=== PATIENT | male | born 1960 | race Caucasian/White ===

== ENCOUNTER → 2017-07-10 | Outpatient (CLI) | payer BC ==
[2017-07-10 07:08] LABS: Blood Urea Nitrogen 14 mg/dL (9-20)
--- NOTE | 2017-07-10 08:38 | CT ---
EXAMINATION TYPE: CT chest w con DATE OF EXAM: 07/10/2017 COMPARISON: NONE HISTORY: chest pain, SOB, wt loss, anemia CT DLP: 656 mGycm. Automated Exposure Control for Dose Reduction was Utilized. TECHNIQUE: CT scan of the thorax is performed following with IV Contrast, patient injected with 100 mL of Omnipaque 300. FINDINGS: LUNGS: There are small to moderate-sized right pleural effusion with associated compressive atelectas is in the right lung base. There is no significant left-sided effusion seen. Tracheobronchial tree is patent. There is some additional linear scarring and/or atelectasis in the right middle lobe near ax ial image 36 and in the lingula seen best coronal image 23. No suspicious parenchymal nodule or mass is identified bilaterally. No pneumothorax is seen bilaterally. MEDIASTINUM: There are no greater than 1 cm hilar or mediastinal lymph nodes. No pericardial effusi on is seen. Heart size is upper limits of normal. OTHER: No additional significant abnormality is seen. IMPRESSION: 1. Unilateral small to moderate-sized right pleural effusion of uncertain etiology. No suspicious mas s or adenopathy noted.
== END | disposition home or self-care (01) ==
LOC: RADCTMAIN 06:33
PROVIDERS: ATTEND Family Medicine
DX: J90 Pleural effusion, not elsewhere classified (principal)
CPT/HCPCS: 82565; 84520; 71260; 36415; Q9967

== ENCOUNTER 2017-07-31 08:56 | Day surgery (SDC) | payer BC ==
[2017-07-31 09:40] LABS: Platelet Count 552 k/uL (150-450)
[2017-07-31 09:45] VITALS: TEMP 97.8
[2017-07-31 09:49] LABS: INR 1.2 (<1.2); Prothrombin Time 11.1 sec (9.0-12.0)
--- NOTE | 2017-07-31 11:01 | XR ---
EXAMINATION TYPE: XR chest 1V portable DATE OF EXAM: 07/31/2017 COMPARISON: Chest x-ray 07/22/2017 HISTORY: Status post right thoracentesis TECHNIQUE: Single frontal view of the chest is obtained. FINDINGS: There is improved aeration at the right lung base. No evident pneumothorax. Exam is otherw ise stable. IMPRESSION: No evident complication status post thoracentesis.
[2017-07-31 11:03] VITALS: RESP 16
[2017-07-31 11:50] VITALS: BP 133/73; PULSE 70
--- NOTE | 2017-07-31 13:54 | US ---
EXAMINATION TYPE: US thoracentesis DATE OF EXAM: 07/31/2017 COMPARISON: NONE HISTORY: Pleural effusion. FINDINGS: Maximal barrier technique was utilized. The skin overlying a suitable pocket of fluid was localized and the overlying skin prepped and draped. Lidocaine was used for local anesthesia. Ultras ound was used with sterile technique. A 5 Macedonian catheter over guide needle was advanced into the pl eural fluid collection using ultrasound guidance and catheter advanced, needle removed. Approximatel y 0.56 liter(s) of sanguinous fluid was removed. Catheter was withdrawn and hemostasis achieved. Th ere is no immediate complication. The patient discharged in stable condition without complication. IMPRESSION: STATUS POST ULTRASOUND GUIDED THORACENTESIS, POST PROCEDURE CHEST X-RAY PENDING. THIS VT OCEDURE WAS PERFORMED BY THE UNDERSIGNED. Specimen obtained for laboratory analysis.
[2017-07-31 19:31] LABS: Total Protein, Body Fluid 4300 mg/dL
== END 2017-07-31 11:10 | disposition home or self-care (01) ==
LOC: RADPROMAIN 08:56
PROVIDERS: ATTEND Internal Medicine
DX: J90 Pleural effusion, not elsewhere classified (principal)
CPT/HCPCS: 32555; 36415; 71045; 82945; 83615; 84157; 85049; 85610; 87070; 87205; 88108; 88305

== ENCOUNTER → 2017-08-16 | Outpatient (CLI) | payer BC ==
--- NOTE | 2017-08-16 14:38 | CT ---
EXAMINATION TYPE: CT abdomen pelvis w con DATE OF EXAM: 08/16/2017 COMPARISON: NONE INDICATION: Weight loss, not feeling well DLP: 1011.4 mGycm, Automated exposure control for dose reduction was used. CONTRAST: 100 mL of Omnipaque 300. Study performed with Oral Contrast TECHNIQUE: Axial images were obtained from above the diaphragm to the pubic rami in the axial plane a t 5 mm thick sections. Reconstructed images are reviewed on the computer in the coronal plane. FINDINGS: Limited CT sections are obtained the lung bases. There is a moderate right pleural effusion present in the subpulmonic region. Compressive atelectasis is present. Left lung appears clear. CT ABDOMEN: Liver: Normal Spleen: Normal Pancreas: Normal Adrenal glands: The adrenal glands are normal. Gallbladder: Normal Kidneys: There is an irregular slightly hypodense mass within the anterior lateral left mid kidney me asuring 7.1 x 9.3 cm in size. This extends inferior pole. At the inferior pole there is a 4.5 cm cyst .. No hydronephrosis is present. Findings are suspicious for a left renal mass such as renal cell c arcinoma. Additional workup is recommended. Aorta: Vascular calcification is within the aorta. Inferior vena cava: Normal. CT PELVIS: Diverticular changes are within the sigmoid colon. Thickening of the distal colon is not excluded. Co litis is considered. Underlying mass is within the differential. Series 3 image 84. No obstruction is evident. Appendix: Normal as visualized. Urinary bladder: Decompressed, normal as visualized Genitourinary structures: Prostate is unremarkable Osseous structures: No suspicious lytic or sclerotic lesions. IMPRESSIONS: 1. Left renal mass suspicious for neoplasm. 2. Thickening of the distal sigmoid colon with multiple diverticuli present. Underlying mass is not e xcluded. Colitis could be considered. No suspicious adjacent inflammatory changes. 3. Moderate right pleural effusion A [employer] message has been communicated to Olivier Dasilva MD via the [employer] Critical Result system on 08/16/2017 2:35 PM, Message ID [id number].
== END | disposition home or self-care (01) ==
LOC: RADCTMAIN 09:11
PROVIDERS: ATTEND Internal Medicine Hematology & Oncology
DX: N28.89 Other specified disorders of kidney and ureter (principal); K63.89 Other specified diseases of intestine; J90 Pleural effusion, not elsewhere classified; D64.9 Anemia, unspecified; R63.4 Abnormal weight loss
CPT/HCPCS: 74177; Q9967

== ENCOUNTER 2017-08-20 11:54 | Inpatient (IN) | payer BC ==
[2017-08-20 16:08] LABS: Basophils % (A) 0 %; Eosinophils # (A) 0.2 k/uL (0-0.7); Eosinophils % (A) 1 %; HCT 28.1 % (39.0-53.0); HGB 8.2 gm/dL (13.0-17.5); Hypochromasia Marked; Lymphocytes # (A) 1.6 k/uL (1.0-4.8); Lymphocytes % (A) 7 %; MCH 24.8 pg (25.0-35.0); MCV 85.5 fL (80.0-100.0); Mean Platelet Volume 7.2; Monocytes # (A) 1.1 k/uL (0-1.0); Monocytes % (A) 5 %; Neutrophils # (A) 20.2 k/uL (1.3-7.7); Neutrophils % (A) 87 %; Platelet Count 563 k/uL (150-450); RBC 3.29 m/uL (4.30-5.90); RDW 13.4 % (11.5-15.5); WBC 23.4 k/uL (3.8-10.6)
[2017-08-20 16:10] LABS: ALT 39 U/L (21-72); AST 21 U/L (17-59); Albumin 2.6 g/dL (3.5-5.0); Alkaline Phosphatase 147 U/L (38-126); Anion Gap 13 mmol/L; Blood Urea Nitrogen 18 mg/dL (9-20); Calcium 8.2 mg/dL (8.4-10.2); Carbon Dioxide 24 mmol/L (22-30); Chloride 102 mmol/L (98-107); Glucose 165 mg/dL (74-99); Potassium 4.8 mmol/L (3.5-5.1); Sodium 139 mmol/L (137-145); Total Bilirubin 0.6 mg/dL (0.2-1.3); Total Protein 5.7 g/dL (6.3-8.2)
[2017-08-20] MEDS: DEXTROSE 5%-0.45% NACL 1,000 ML IV SCH (16:58)
[2017-08-20] MEDS: SODIUM FERRIC GLUCONAT-SUCROSE 125 MG in SODIUM CHLORIDE 0.9% 100 ML IVPB SCH (16:59)
[2017-08-20] MEDS ORDERED: SODIUM FERRIC GLUCONAT-SUCROSE 125 MG in SODIUM CHLORIDE 0.9% 100 ML IVPB SCH (17:00)
[2017-08-20 17:21] LABS: Glucose,Whole Blood 154 mg/dL (75-99)
[2017-08-20 20:12] LABS: Glucose,Whole Blood 221 mg/dL (75-99)
[2017-08-21] MEDS: DEXTROSE 5%-0.45% NACL 1,000 ML IV SCH ×2 (05:29→13:35)
[2017-08-21] MEDS: SODIUM FERRIC GLUCONAT-SUCROSE 125 MG in SODIUM CHLORIDE 0.9% 100 ML IVPB SCH ×2 (05:29→16:47)
[2017-08-21 07:28] LABS: Glucose,Whole Blood 206 mg/dL (75-99)
--- NOTE | 2017-08-21 07:55 | P.GSCN ---
History of Present Illness Consult date: 08/21/17 Reason for Consult: Left renal mass History of present illness: The patient is a pleasant 56-year-old gentleman who for the last 8 weeks as had problems with loss of appetite, weight loss, 40 pounds and weakness. He also has had shortness of breath. A chest x-ray was obtained identifying fluid on the lung. He had a thoracentesis is simply that did not identify any obvious issues. He was sent to Dr. Dasilva who was evaluating him but his weakness became significant and that he ended up in the hospital. He is found to be anemic with a hemoglobin of 8.8. He had a computed tomography scan of the abdomen identifying a 7 x 9 cm left renal mass. He also has a persistent right pleural effusion. He has no history of obvious blood loss. He has had no hematuria or hematochezia. He has had diarrhea. His proteins are low. He is diabetic but this is been under control. His creatinine is normal. He has no other urologic history. There's been no swelling infections stones. On computed tomography scan there is a large left renal mass. There may be some perirenal adenopathy. There is a large aural effusion on the right. His laboratory identifies no elevated white count 23,000. Hemoglobin of 8.2. Creatinine of 1. There is no urinalysis. Review of Systems - Constitutional Reports anorexia, Reports fatigue, Reports lethargy, Reports night sweats - Cardiovascular Denies chest pain, Denies shortness of breath - Respiratory Reports cough - Gastrointestinal Reports diarrhea - Genitourinary Reports as per HPI Past Medical History Past Medical History: Diabetes Mellitus, Hypertension Additional Past Medical History / Comment(s): pleural effusion,"iron deficency anemia", pt stated on 08-16-17 testing foun mass on lt kidney and thickening in colon wall. 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 pt stated no appetite and weight down 40 # in approx 8 weeks. History of Any Multi-Drug Resistant Organisms: None Reported Additional Past Surgical History / Comment(s): colonoscopy. Right shoulder repair, rt knee cap scrapped 15 years ago, "rt lung fluid removed" Past Anesthesia/Blood Transfusion Reactions: No Reported Reaction Smoking Status: Never smoker - Past Family History Father Family Medical History: Cancer Additional Family Medical History / Comment(s): from lung cancer Mother Family Medical History: Cancer Additional Family Medical History / Comment(s): 20 years ago from ultiple myeloma Medications and Allergies Home Medications Medication Instructions Recorded Confirmed Type Lisinopril [Zestril] 10 mg PO DAILY 07/23/17 08/20/17 History amLODIPine [Norvasc] 5 mg PO DAILY 07/23/17 08/20/17 History Multivitamins, Thera [Multivitamin 1 tab PO DAILY 08/20/17 08/20/17 History (formulary)] sitaGLIPtin PHOS/metFORMIN HCL 1 tab PO AC-BID 08/20/17 08/20/17 History [Janumet 50-1,000 mg Tablet] Allergies Allergy/AdvReac Type Severity Reaction Status Date / Time No Known Allergies Allergy Verified 08/20/17 15:24 Surgical - Exam Vital Signs Temp Pulse Resp BP Pulse Ox 100.1 F H 108 H 16 125/77 96 08/20/17 15:17 08/20/17 15:17 08/20/17 15:17 08/20/17 15:17 08/20/17 15:17 - General well developed, chronically ill - Eyes PERRL, pale - ENT no hearing loss - Neck no masses, trachea midline - Cardiovascular Rhythm: regular - Abdomen Abdomen: soft, non tender - Genitourinary normal penis with no external lesions, testicles present - Integumentary no rash, no growths - Neurologic normal coordination, normal sensation - Musculoskeletal normal posture - Psychiatric oriented to time, oriented to person, oriented to place, speech is normal, memory intact Results - Labs 08/20/17 15:48 08/20/17 15:48 Abnormal Lab Results - Last 24 Hours (Table) 08/20/17 08/20/17 08/20/17 Range/Units 15:48 15:48 17:16 WBC 23.4 H (3.8-10.6) k/uL RBC 3.29 L (4.30-5.90) m/uL Hgb 8.2 L (13.0-17.5) gm/dL Hct 28.1 L (39.0-53.0) % MCH 24.8 L (25.0-35.0) pg MCHC 29.0 L (31.0-37.0) g/dL Plt Count 563 H (150-450) k/uL Neutrophils # 20.2 H (1.3-7.7) k/uL Monocytes # 1.1 H (0-1.0) k/uL Glucose 165 H (74-99) mg/dL POC Glucose (mg/dL) 154 H (75-99) mg/dL Calcium 8.2 L (8.4-10.2) mg/dL Alkaline Phosphatase 147 H (38-126) U/L Total Protein 5.7 L (6.3-8.2) g/dL Albumin 2.6 L (3.5-5.0) g/dL 08/20/17 08/21/17 Range/Units 20:10 07:22 WBC (3.8-10.6) k/uL RBC (4.30-5.90) m/uL Hgb (13.0-17.5) gm/dL Hct (39.0-53.0) % MCH (25.0-35.0) pg MCHC (31.0-37.0) g/dL Plt Count (150-450) k/uL Neutrophils # (1.3-7.7) k/uL Monocytes # (0-1.0) k/uL Glucose (74-99) mg/dL POC Glucose (mg/dL) 221 H 206 H (75-99) mg/dL Calcium (8.4-10.2) mg/dL Alkaline Phosphatase (38-126) U/L Total Protein (6.3-8.2) g/dL Albumin (3.5-5.0) g/dL Diabetes panel 08/20/17 Range/Units 15:48 Sodium 139 (137-145) mmol/L Potassium 4.8 (3.5-5.1) mmol/L Chloride 102 (98-107) mmol/L Carbon Dioxide 24 (22-30) mmol/L BUN 18 (9-20) mg/dL Creatinine 1.00 (0.66-1.25) mg/dL Glucose 165 H (74-99) mg/dL Calcium 8.2 L (8.4-10.2) mg/dL AST 21 (17-59) U/L ALT 39 (21-72) U/L Alkaline Phosphatase 147 H (38-126) U/L Total Protein 5.7 L (6.3-8.2) g/dL Albumin 2.6 L (3.5-5.0) g/dL Calcium panel 08/20/17 Range/Units 15:48 Calcium 8.2 L (8.4-10.2) mg/dL Albumin 2.6 L (3.5-5.0) g/dL Pituitary panel 08/20/17 Range/Units 15:48 Sodium 139 (137-145) mmol/L Potassium 4.8 (3.5-5.1) mmol/L Chloride 102 (98-107) mmol/L Carbon Dioxide 24 (22-30) mmol/L BUN 18 (9-20) mg/dL Creatinine 1.00 (0.66-1.25) mg/dL Glucose 165 H (74-99) mg/dL Calcium 8.2 L (8.4-10.2) mg/dL Adrenal panel 08/20/17 Range/Units 15:48 Sodium 139 (137-145) mmol/L Potassium 4.8 (3.5-5.1) mmol/L Chloride 102 (98-107) mmol/L Carbon Dioxide 24 (22-30) mmol/L BUN 18 (9-20) mg/dL Creatinine 1.00 (0.66-1.25) mg/dL Glucose 165 H (74-99) mg/dL Calcium 8.2 L (8.4-10.2) mg/dL Total Bilirubin 0.6 (0.2-1.3) mg/dL AST 21 (17-59) U/L ALT 39 (21-72) U/L Alkaline Phosphatase 147 H (38-126) U/L Total Protein 5.7 L (6.3-8.2) g/dL Albumin 2.6 L (3.5-5.0) g/dL - Imaging CT scan - abdomen: report reviewed, image reviewed CT scan - chest: report reviewed, image reviewed Assessment and Plan Assessment: Impression: Left renal mass worrisome for renal cell carcinoma, anemia, pleural effusion right, large, weight loss. Diabetes. Recommendation: This patient appears to have renal cell carcinoma. With the elevated white count however there is always a concern of xanthogranulomatous pyelonephritis however that is less likely. A pleural effusion is bothersome as is the weight loss and anemia. The patient needs a bone scan and probably repeat pleural To see if indeed there is some malignancy. He also needs a urinalysis. Follow this patient with you.
--- NOTE | 2017-08-21 08:39 | P.GSCN ---
History of Present Illness Consult date: 08/21/17 Reason for Consult: Anemia, change in bowel habits History of present illness: Patient was admitted with significant weight loss and anorexia. He has had gradually advancing fatigue as well. Some shortness of breath. Last colonoscopy 3 years ago. CAT scan of the chest showed a pleural effusion. The patient had a thoracentesis done and the cytology was negative. Unfortunately recent CAT scan of the abdomen shows that the pleural effusion has recurred and is actually larger in size. A left renal mass with adenopathy is also seen. There is some thickening of the colon in the sigmoid. Denies rectal bleeding. Some diarrhea. We were asked to proceed with colonoscopy. White blood cell count is elevated. Hemoglobin 8.2. Review of Systems The patient denies any acute changes in vision or hearing, no dysphagia or odynophagia, no chest pain, no dysuria or hematuria, no headache, no runny nose , no rectal bleeding or melena Past Medical History Past Medical History: Diabetes Mellitus, Hypertension Additional Past Medical History / Comment(s): pleural effusion,"iron deficency anemia", pt stated on 08-16-17 testing foun mass on lt kidney and thickening in colon wall. 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 pt stated no appetite and weight down 40 # in approx 8 weeks. History of Any Multi-Drug Resistant Organisms: None Reported Additional Past Surgical History / Comment(s): colonoscopy. Right shoulder repair, rt knee cap scrapped 15 years ago, "rt lung fluid removed" Past Anesthesia/Blood Transfusion Reactions: No Reported Reaction Smoking Status: Never smoker - Past Family History Father Family Medical History: Cancer Additional Family Medical History / Comment(s): from lung cancer Mother Family Medical History: Cancer Additional Family Medical History / Comment(s): 20 years ago from ultiple myeloma Medications and Allergies Home Medications Medication Instructions Recorded Confirmed Type Lisinopril [Zestril] 10 mg PO DAILY 07/23/17 08/20/17 History amLODIPine [Norvasc] 5 mg PO DAILY 07/23/17 08/20/17 History Multivitamins, Thera [Multivitamin 1 tab PO DAILY 08/20/17 08/20/17 History (formulary)] sitaGLIPtin PHOS/metFORMIN HCL 1 tab PO AC-BID 08/20/17 08/20/17 History [Janumet 50-1,000 mg Tablet] Allergies Allergy/AdvReac Type Severity Reaction Status Date / Time No Known Allergies Allergy Verified 08/20/17 15:24 Surgical - Exam Vital Signs Temp Pulse Resp BP Pulse Ox 100.1 F H 108 H 16 125/77 96 08/20/17 15:17 08/20/17 15:17 08/20/17 15:17 08/20/17 15:17 08/20/17 15:17 Physical exam: General: Well-developed, well-nourished HEENT: Normocephalic, sclerae nonicteric Abdomen: Nontender, nondistended Extremities: No edema Neuro: Alert and oriented Results - Labs 08/20/17 15:48 08/20/17 15:48 Abnormal Lab Results - Last 24 Hours (Table) 08/20/17 08/20/17 08/20/17 Range/Units 15:48 15:48 17:16 WBC 23.4 H (3.8-10.6) k/uL RBC 3.29 L (4.30-5.90) m/uL Hgb 8.2 L (13.0-17.5) gm/dL Hct 28.1 L (39.0-53.0) % MCH 24.8 L (25.0-35.0) pg MCHC 29.0 L (31.0-37.0) g/dL Plt Count 563 H (150-450) k/uL Neutrophils # 20.2 H (1.3-7.7) k/uL Monocytes # 1.1 H (0-1.0) k/uL Glucose 165 H (74-99) mg/dL POC Glucose (mg/dL) 154 H (75-99) mg/dL Calcium 8.2 L (8.4-10.2) mg/dL Alkaline Phosphatase 147 H (38-126) U/L Total Protein 5.7 L (6.3-8.2) g/dL Albumin 2.6 L (3.5-5.0) g/dL 08/20/17 08/21/17 Range/Units 20:10 07:22 WBC (3.8-10.6) k/uL RBC (4.30-5.90) m/uL Hgb (13.0-17.5) gm/dL Hct (39.0-53.0) % MCH (25.0-35.0) pg MCHC (31.0-37.0) g/dL Plt Count (150-450) k/uL Neutrophils # (1.3-7.7) k/uL Monocytes # (0-1.0) k/uL Glucose (74-99) mg/dL POC Glucose (mg/dL) 221 H 206 H (75-99) mg/dL Calcium (8.4-10.2) mg/dL Alkaline Phosphatase (38-126) U/L Total Protein (6.3-8.2) g/dL Albumin (3.5-5.0) g/dL Diabetes panel 08/20/17 Range/Units 15:48 Sodium 139 (137-145) mmol/L Potassium 4.8 (3.5-5.1) mmol/L Chloride 102 (98-107) mmol/L Carbon Dioxide 24 (22-30) mmol/L BUN 18 (9-20) mg/dL Creatinine 1.00 (0.66-1.25) mg/dL Glucose 165 H (74-99) mg/dL Calcium 8.2 L (8.4-10.2) mg/dL AST 21 (17-59) U/L ALT 39 (21-72) U/L Alkaline Phosphatase 147 H (38-126) U/L Total Protein 5.7 L (6.3-8.2) g/dL Albumin 2.6 L (3.5-5.0) g/dL Calcium panel 08/20/17 Range/Units 15:48 Calcium 8.2 L (8.4-10.2) mg/dL Albumin 2.6 L (3.5-5.0) g/dL Pituitary panel 08/20/17 Range/Units 15:48 Sodium 139 (137-145) mmol/L Potassium 4.8 (3.5-5.1) mmol/L Chloride 102 (98-107) mmol/L Carbon Dioxide 24 (22-30) mmol/L BUN 18 (9-20) mg/dL Creatinine 1.00 (0.66-1.25) mg/dL Glucose 165 H (74-99) mg/dL Calcium 8.2 L (8.4-10.2) mg/dL Adrenal panel 02/20/18 Range/Units 15:48 Sodium 139 (137-145) mmol/L Potassium 4.8 (3.5-5.1) mmol/L Chloride 102 (98-107) mmol/L Carbon Dioxide 24 (22-30) mmol/L BUN 18 (9-20) mg/dL Creatinine 1.00 (0.66-1.25) mg/dL Glucose 165 H (74-99) mg/dL Calcium 8.2 L (8.4-10.2) mg/dL Total Bilirubin 0.6 (0.2-1.3) mg/dL AST 21 (17-59) U/L ALT 39 (21-72) U/L Alkaline Phosphatase 147 H (38-126) U/L Total Protein 5.7 L (6.3-8.2) g/dL Albumin 2.6 L (3.5-5.0) g/dL Assessment and Plan (1) Anemia Narrative/Plan: Will proceed with EGD and colonoscopy tomorrow. Risks of bleeding and perforation reviewed. He understands and wishes to proceed. Await repeat thoracentesis as well. Current Visit: Yes Status: Acute Code(s): D64.9 - ANEMIA, UNSPECIFIED SNOMED Code(s): 378303979
[2017-08-21 09:04] LABS: Basophils # (A) 0.1 k/uL (0-0.2); Basophils % (A) 0 %; Eosinophils # (A) 0.5 k/uL (0-0.7); Eosinophils % (A) 2 %; HCT 29.3 % (39.0-53.0); HGB 8.5 gm/dL (13.0-17.5); Hypochromasia Marked; Lymphocytes # (A) 1.9 k/uL (1.0-4.8); Lymphocytes % (A) 8 %; MCH 24.5 pg (25.0-35.0); MCHC 29.2 g/dL (31.0-37.0); MCV 84.1 fL (80.0-100.0); Mean Platelet Volume 7.2; Monocytes # (A) 1.3 k/uL (0-1.0); Monocytes % (A) 5 %; Neutrophils # (A) 19.6 k/uL (1.3-7.7); Neutrophils % (A) 84 %; Platelet Count 702 k/uL (150-450); RBC 3.48 m/uL (4.30-5.90); RDW 12.9 % (11.5-15.5); WBC 23.5 k/uL (3.8-10.6)
[2017-08-21] MEDS: LISINOPRIL 10 MG TAB PO SCH (09:57)
[2017-08-21] MEDS: amLODIPine 5 MG TAB PO SCH (09:58)
[2017-08-21 10:33] VITALS: BMI 25.7
[2017-08-21 11:15] LABS: Appearance,Urine Clear (Clear); Bilirubin,Urine Negative (Negative); Blood,Urine Trace (Negative); Color,Urine Light Yellow; Glucose,Urine (UA) Negative (Negative); Ketones,Urine Negative (Negative); Leukocyte Esterase,Urine Negative (Negative); Mucus,Urine Rare /hpf; Nitrite,Urine Negative (Negative); PH, Urine 5.5 (5.0-8.0); Protein,Urine Negative (Negative); RBC,Urine 2 /hpf (0-5); Specific Gravity,Urine 1.003 (1.001-1.035); WBC,Urine <1 /hpf (0-5)
[2017-08-21 11:33] LABS: Glucose,Whole Blood 230 mg/dL (75-99)
[2017-08-21] MEDS: PANTOPRAZOLE 40 MG/10 ML VIAL IVP SCH (11:50)
[2017-08-21] MEDS: MULTIVITAMINS, THERA 1 EACH TAB PO SCH (12:49)
[2017-08-21] MEDS: INSULIN ASPART 100 UNIT/ML 1 ML 10 ML VIAL SQ SCH ×3 (12:49→20:38)
[2017-08-21] MEDS ORDERED: ONDANSETRON 4 MG/2 ML VIAL IVP PRN (13:20)
[2017-08-21] MEDS ORDERED: ALPRAZolam 0.5 MG TAB PO PRN (13:21)
--- NOTE | 2017-08-21 14:08 | P.HPIM ---
History of Present Illness H&P Date: 08/21/17 56-year-old male who was directly admitted to the hospital after he was seen by Dr. Dasilva outpatient. His primary care physician is Dr. Rudolph. The patient was originally referred to Dr. Dasilva by Dr. Rudolphs office for abnormal blood work. The patient underwent a CT of the chest on 2017 which revealed a small to moderate sized right pleural effusion. The patient underwent a thoracentesis on 07/31/2017 with removal of approximately 500 mL. Pleural fluid was negative for malignancy at that time. The patient then had a CT of the abdomen and pelvis completed on 08/16/2017 which revealed a left renal mass suspicious for neoplasm, thickening of the distal sigmoid colon with multiple diverticuli present, underlying mass is not excluded, and moderate right pleural effusion. The patient has become progressively weaker over the last 8 weeks. He states his appetite is poor. He reports weight loss of 40 pounds over the last 6-8 weeks. Denies shortness of breath at rest. Positive for dyspnea with exertion. Denies cough. Denies chest pain or pressure. Denies nausea or vomiting. Denies abdominal pain. Denies change in bowel habits. The patient was admitted to the hospital under the care of Dr. De Souza/ Klaudia. Consultations were placed to Gen. surgery, urology, and hematology oncology. Review of Systems GENERAL: Positive for generalized weakness. Positive for 40 pound weight loss over 6-8 weeks. Patient denies fever. Denies chills. EYES: Denies blurred vision. Denies vision changes. Denies eye pain. EARS, NOSE, MOUTH, & THROAT: Denies headache. Denies sore throat. Denies ear pain. RESPIRATORY: Positive for shortness of breath with exertion. Denies cough. Denies sputum production. Denies hemoptysis. CARDIOVASCULAR: Denies chest pain or pressure. Denies palpitations. Denies arrhythmias. GASTROINTESTINAL: Denies abdominal pain. Denies diarrhea. Denies constipation. Denies nausea. Denies vomiting. Denies heartburn. Denies blood in the stool. GENITOURINARY: Denies urinary frequency. Denies burning. Denies dysuria. Denies cloudy urine. Denies blood in the urine. MUSCULOSKELETAL: Denies myalgias. Denies joint swelling. Denies decreased range of motion beyond patients baseline. INTEGUMENTARY: Denies pruitis. Denies rash. PSYCHIATRIC: Denies suicidal or homicial ideations. ENDOCRINE: Denies weight change. Denies polydipsia. Denies polyuria. HEMATOLOGIC: Denies bleeding disorders. Past Medical History Past Medical History: Diabetes Mellitus, Hypertension Additional Past Medical History / Comment(s): pleural effusion,"iron deficency anemia", pt stated on 08-16-17 testing foun mass on lt kidney and thickening in colon wall. 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 pt stated no appetite and weight down 40 # in approx 8 weeks. History of Any Multi-Drug Resistant Organisms: None Reported Additional Past Surgical History / Comment(s): colonoscopy. Right shoulder repair, rt knee cap scrapped 15 years ago, "rt lung fluid removed" Past Anesthesia/Blood Transfusion Reactions: No Reported Reaction Smoking Status: Never smoker - Past Family History Father Family Medical History: Cancer Additional Family Medical History / Comment(s): from lung cancer Mother Family Medical History: Cancer Additional Family Medical History / Comment(s): 20 years ago from ultiple myeloma Medications and Allergies Home Medications Medication Instructions Recorded Confirmed Type Lisinopril [Zestril] 10 mg PO DAILY 07/23/17 08/20/17 History amLODIPine [Norvasc] 5 mg PO DAILY 07/23/17 08/20/17 History Multivitamins, Thera [Multivitamin 1 tab PO DAILY 08/20/17 08/20/17 History (formulary)] sitaGLIPtin PHOS/metFORMIN HCL 1 tab PO AC-BID 08/20/17 08/20/17 History [Janumet 50-1,000 mg Tablet] Allergies Allergy/AdvReac Type Severity Reaction Status Date / Time No Known Allergies Allergy Verified 08/20/17 15:24 Physical Exam Vitals: Vital Signs Temp Pulse Resp BP Pulse Ox 08/21/17 08:28 102 H 08/21/17 07:32 98.4 F 102 H 15 131/68 08/20/17 22:35 98.9 F 102 H 16 124/79 98 08/20/17 15:17 100.1 F H 108 H 16 125/77 96 Intake and Output 08/20/17 08/21/17 08/21/17 22:59 06:59 14:59 Other: Voiding Method Toilet # Voids 1 2 Weight 86.183 kg 86.183 kg Patient Weight 08/22/17 06:59 Weight 86.183 kg GENERAL: This is a 56-year-old male in no apparent distress at the time of examination. Pleasant and cooperative. HEENT: Head is atraumatic, normocephalic. Pupils are equal, round, and reactive to light. Sclerae anicteric. Conjunctivae are clear. Mucus membranes of the mouth are moist. Neck is supple. RESPIRATORY: Clear to ausculation. Diminished lung sounds on right side. No use of accessory muscles. Patient maintaining oxygen saturation greater than 92 %. No chest wall tenderness is noted on palpation or with deep breathing. CARDIOVASCULAR: Regular rate and rhythm. S1 and S2 noted. No systolic or diastolic murmur auscultated. No JVD noted. No S3 or S4 noted. GASTROINTESTINAL: No distention noted. Abdomen soft and round. Normal active bowel sounds auscultated x 4 quadrants. No pain or tenderness noted upon palpation. INTEGUMENTARY: No cyanosis. No jaundice. No rashes noted. No cellulitis noted. EXTREMITIES: 2+ peripheral pulses. No evidence of peripheral edema. No calf tenderness noted. NEUROLOGIC: Cranial nerves II-XII intact. PSYCHIATRIC: Awake, alert, and oriented X 3. Appropriate affect. Intact judgement and insight. Results CBC & Chem 7: 08/21/17 08:16 08/20/17 15:48 Labs: Abnormal Lab Results - Last 24 Hours (Table) 08/20/17 08/20/17 08/20/17 Range/Units 15:48 15:48 17:16 WBC 23.4 H (3.8-10.6) k/uL RBC 3.29 L (4.30-5.90) m/uL Hgb 8.2 L (13.0-17.5) gm/dL Hct 28.1 L (39.0-53.0) % MCH 24.8 L (25.0-35.0) pg MCHC 29.0 L (31.0-37.0) g/dL Plt Count 563 H (150-450) k/uL Neutrophils # 20.2 H (1.3-7.7) k/uL Monocytes # 1.1 H (0-1.0) k/uL Glucose 165 H (74-99) mg/dL POC Glucose (mg/dL) 154 H (75-99) mg/dL Calcium 8.2 L (8.4-10.2) mg/dL Alkaline Phosphatase 147 H (38-126) U/L Total Protein 5.7 L (6.3-8.2) g/dL Albumin 2.6 L (3.5-5.0) g/dL Urine Blood (Negative) Urine Mucus (None) /hpf 08/20/17 08/21/17 08/21/17 Range/Units 20:10 07:22 08:16 WBC 23.5 H (3.8-10.6) k/uL RBC 3.48 L (4.30-5.90) m/uL Hgb 8.5 L (13.0-17.5) gm/dL Hct 29.3 L (39.0-53.0) % MCH 24.5 L (25.0-35.0) pg MCHC 29.2 L (31.0-37.0) g/dL Plt Count 702 H (150-450) k/uL Neutrophils # 19.6 H (1.3-7.7) k/uL Monocytes # 1.3 H (0-1.0) k/uL Glucose (74-99) mg/dL POC Glucose (mg/dL) 221 H 206 H (75-99) mg/dL Calcium (8.4-10.2) mg/dL Alkaline Phosphatase (38-126) U/L Total Protein (6.3-8.2) g/dL Albumin (3.5-5.0) g/dL Urine Blood (Negative) Urine Mucus (None) /hpf 08/21/17 08/21/17 Range/Units 10:40 11:29 WBC (3.8-10.6) k/uL RBC (4.30-5.90) m/uL Hgb (13.0-17.5) gm/dL Hct (39.0-53.0) % MCH (25.0-35.0) pg MCHC (31.0-37.0) g/dL Plt Count (150-450) k/uL Neutrophils # (1.3-7.7) k/uL Monocytes # (0-1.0) k/uL Glucose (74-99) mg/dL POC Glucose (mg/dL) 230 H (75-99) mg/dL Calcium (8.4-10.2) mg/dL Alkaline Phosphatase (38-126) U/L Total Protein (6.3-8.2) g/dL Albumin (3.5-5.0) g/dL Urine Blood Trace H (Negative) Urine Mucus Rare H (None) /hpf Thrombosis Risk Factor Assmnt - Choose All That Apply Any of the Below Risk Factors Present?: No Other Risk Factors: No Other congenital or acquired thrombophilia - If yes, enter type in comment: No Thrombosis Risk Factor Assessment Level: Very Low Risk Assessment and Plan Plan: ASSESSMENT: Recurrent right pleural effusion, s/p thoracentesis on 07/31/2017 with 500 mL drained, pleural fluid negative for malignancy Left renal mass, suspicious for renal cell carcinoma Diabetes mellitus, type II, hemoglobin A1c pending Essential hypertension Iron deficiency anemia Unintentional weight loss of 40 lbs in last 6-8 weeks Moderate to severe calorie protein malnutrition PLAN: Urology on consult. Appreciate recommendations and input General surgery on consult. Appreciate recommendations and input. Patient scheduled for colonoscopy and EGD tomorrow Will consult pulmonary, Dr. bertrand Obtain US of the chest for possible thoracentesis Obtain hemoglobin A1c Capillary blood glucose accu-checks AC/HS NovoLog sliding scale insulin coverage AC/HS Xanax PRN for anxiety/insomnia Home meds as appropriate Monitor labs GI prophylaxis: Protonix 40 mg IV Daily DVT prophylaxis: Venodyne's to bilateral lower extremities Monitor vital signs and address as appropriate Discharge planning: Patient to return home when stable Further recommendations pending patient's course Nurse practitioner note has been reviewed by physician. Signing provider agrees with the documented findings, assessment, and plan of care.
[2017-08-21] MEDS ORDERED: PEG 3350-NA SULF,BICARB,CL/KCL 4,000 ML BOTTLE PO ONE (15:00)
[2017-08-21] MEDS: SODIUM CHLORIDE 0.9% 1,000 ML IV SCH (15:02)
--- NOTE | 2017-08-21 15:44 | US ---
EXAMINATION TYPE: US chest DATE OF EXAM: 08/21/2017 COMPARISON: CT abdomen and pelvis from 5 days ago CLINICAL HISTORY: Right pleural effusion, poss. thoracentesis. EXAM MEASUREMENTS: Right Pleural Effusion fluid pocket: 7.3 cm A/P free fluid area Right skin to fluid thickness: 3.6 cm Left Pleural Effusion fluid pocket: no fluid seen Right side marked for possible thoracentesis outside the dept. Larger right Pleural effusion pocket i s noted than was measured due to complexity of fluid noted mid and inferior chest. Pulmonologists are able to review the images in the patient?s EMR. Images saved show moderate to large right-sided pleural fluid collection or effusion which correlates with recent CT. IMPRESSIONS: As above
--- NOTE | 2017-08-21 16:34 | P.CNPUL ---
History of Present Illness Consult date: 08/21/17 Requesting physician: Nikita Rudolph Jr Reason for consult: pleural effusion, abnormal CXR/CT, other Chief complaint: Weakness, fatigue, weight loss, recurrent pleural effusion on the right History of present illness: Darryl 56-year-old White male patient of Dr. Rudolph who was directly admitted to the hospital after being seen by Dr. Dasilva in the office for symptoms of profound weakness, fatigue, unintentional weight loss of 40 pounds in the last 8 weeks. Patient went to see Dr. Rudolph in the office on 07/03/2017 for symptoms of right-sided chest discomfort. A chest x-ray taken in the office showed a right-sided pleural effusion. CT of the chest was done on 07/10/2017 which showed small to moderate-sized right pleural effusion. She was referred to Dr. North, and the chest x-ray taken at Dr. Wilson's office again showed a small to moderate-sized pleural effusion. Patient had a ultrasound-guided thoracentesis would removal of 560 mL of sanguinous pleural fluid. The cytology came back negative. Patient was referred to Dr. 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 Dr. Dasilva diagnosed the patient with iron deficiency anemia, and also ordered CT of abdomen and pelvis. CT of abdomen and pelvis on 08/16/2017 showed a left renal mass suspicious for neoplasm, thickening of the distal sigmoid colon with multiple diverticuli, and underlying mass could not be excluded. A moderate- sized right pleural effusion was also seen. Patient was progressively becoming weak, he was requiring the assistance of his family members with even getting in and out of the car. His appetite is poor. Denies any chest pain at the present moment, however with exertion and even with conversation he becomes dyspneic and fatigued. He denied any fevers, but he reports night sweats. He has occasional productive cough with small amount of clear phlegm. He is a lifetime nonsmoker. His other medical history is positive for diabetes type 2 under good control, and hypertension. We were asked to see the patient in regards to his recurrent right pleural effusion. Review of Systems All systems: negative Constitutional: Reports anorexia, Reports poor appetite, Reports sweats, Reports weakness, Reports weight loss, Denies chills, Denies fever Eyes: denies blurred vision, denies pain Ears, nose, mouth and throat: Denies headache, Denies sore throat Cardiovascular: Reports decreased exercise tolerance, Denies chest pain, Denies shortness of breath Respiratory: Reports dyspnea, Denies cough Gastrointestinal: Denies abdominal pain, Denies diarrhea, Denies nausea, Denies vomiting Musculoskeletal: Denies myalgias Integumentary: Denies pruritus, Denies rash Neurological: Denies numbness, Denies weakness Psychiatric: Denies anxiety, Denies depression Endocrine: Denies fatigue, Denies weight change Past Medical History Past Medical History: Diabetes Mellitus, Hypertension Additional Past Medical History / Comment(s): pleural effusion,"iron deficency anemia", pt stated on 08-16-17 testing foun mass on lt kidney and thickening in colon wall. 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 pt stated no appetite and weight down 40 # in approx 8 weeks. History of Any Multi-Drug Resistant Organisms: None Reported Additional Past Surgical History / Comment(s): colonoscopy. Right shoulder repair, rt knee cap scrapped 15 years ago, "rt lung fluid removed" Past Anesthesia/Blood Transfusion Reactions: No Reported Reaction Smoking Status: Never smoker - Past Family History Father Family Medical History: Cancer Additional Family Medical History / Comment(s): from lung cancer Mother Family Medical History: Cancer Additional Family Medical History / Comment(s): 20 years ago from ultiple myeloma Medications and Allergies Home Medications Medication Instructions Recorded Confirmed Type Lisinopril [Zestril] 10 mg PO DAILY 07/23/17 08/20/17 History amLODIPine [Norvasc] 5 mg PO DAILY 07/23/17 08/20/17 History Multivitamins, Thera [Multivitamin 1 tab PO DAILY 08/20/17 08/20/17 History (formulary)] sitaGLIPtin PHOS/metFORMIN HCL 1 tab PO AC-BID 08/20/17 08/20/17 History [Janumet 50-1,000 mg Tablet] Allergies Allergy/AdvReac Type Severity Reaction Status Date / Time No Known Allergies Allergy Verified 08/20/17 15:24 Physical Exam Vitals: Vital Signs Temp Pulse Resp BP Pulse Ox 08/21/17 15:18 102 H 15 08/21/17 15:00 99.1 F 106 H 16 128/60 94 L 08/21/17 08:28 102 H 08/21/17 07:32 98.4 F 102 H 15 131/68 08/20/17 22:35 98.9 F 102 H 16 124/79 98 Intake and Output 08/21/17 08/21/17 08/21/17 06:59 14:59 22:59 Intake Total 1015 Balance 1015 Intake: Intake, IV Titration 900 Amount Dextrose 5%-0.45% NaCl 1, 800 000 ml @ 100 mls/hr IV . Q10H [facility] Rx#:[id number] Sodium Ferric Gluconat- 100 Sucrose 125 mg In Sodium Chloride 0.9% 100 ml @ 100 mls/hr IVPB Q12H [facility] Rx#:[id number] Oral 115 Other: Voiding Method Toilet Toilet # Voids 2 Weight 86.183 kg 86.183 kg Patient Weight 08/22/17 06:59 Weight 86.183 kg GENERAL EXAM: Alert, pleasant, 56-year-old white male, comfortable in no apparent distress. HEAD: Normocephalic/atraumatic. EYES: Normal reaction of pupils, equal size. Conjunctiva pink, sclera white. NOSE: Clear with pink turbinates. THROAT: No erythema or exudates. NECK: No masses, no JVD, no thyroid enlargement, no adenopathy. CHEST: No chest wall deformity. Symmetrical expansion. LUNGS: Equal air entry with no crackles, wheeze, rhonchi. Lung sounds are diminished over right posterior lower lobe, there is dullness to percussion noted over right base CVS: Regular rate and rhythm, normal S1 and S2, no gallops, no murmurs, no rubs ABDOMEN: Soft, nontender. No hepatosplenomegaly, normal bowel sounds, no guarding or rigidity. EXTREMITIES: No clubbing, no edema, no cyanosis, 2+ pulses and upper and lower extremities. MUSCULOSKELETAL: Muscle strength and tone normal. SPINE: No scoliosis or deformity SKIN: No rashes CENTRAL NERVOUS SYSTEM: Alert and oriented -3. No focal deficits, tone is normal in all 4 extremities. PSYCHIATRIC: Alert and oriented -3. Appropriate affect. Intact judgment and insight. Results - Laboratory Findings CBC and BMP: 08/21/17 08:16 08/20/17 15:48 Abnormal lab findings: Abnormal Labs 08/20/17 08/20/17 08/20/17 15:48 15:48 17:16 WBC 23.4 H RBC 3.29 L Hgb 8.2 L Hct 28.1 L MCH 24.8 L MCHC 29.0 L Plt Count 563 H Neutrophils # 20.2 H Monocytes # 1.1 H Glucose 165 H POC Glucose (mg/dL) 154 H Calcium 8.2 L Alkaline Phosphatase 147 H Total Protein 5.7 L Albumin 2.6 L Urine Blood Urine Mucus 08/20/17 08/21/17 08/21/17 20:10 07:22 08:16 WBC 23.5 H RBC 3.48 L Hgb 8.5 L Hct 29.3 L MCH 24.5 L MCHC 29.2 L Plt Count 702 H Neutrophils # 19.6 H Monocytes # 1.3 H Glucose POC Glucose (mg/dL) 221 H 206 H Calcium Alkaline Phosphatase Total Protein Albumin Urine Blood Urine Mucus 08/21/17 08/21/17 10:40 11:29 WBC RBC Hgb Hct MCH MCHC Plt Count Neutrophils # Monocytes # Glucose POC Glucose (mg/dL) 230 H Calcium Alkaline Phosphatase Total Protein Albumin Urine Blood Trace H Urine Mucus Rare H - Diagnostic Findings Chest x-ray: report reviewed CT scan - chest: report reviewed Additional studies: Abdomen/pelvis CT from 08/16/2017 reviewed Assessment and Plan Plan: Assessment: #1. Recurrent right pleural effusion, status post ultrasound-guided thoracentesis on 07/31/2017 with removal of 560 mL of sanguinous pleural fluid. Pleural fluid cytology was negative for malignancy. #2. Left renal mass suspicious for neoplasm seen on the CT abdomen and pelvis on 08/16/2017 #3. Thickening of the distal sigmoid colon with multiple diverticuli, underlying mass could not be excluded, seen on the CT abdomen and pelvis on #4. Unintentional weight loss of 40 pounds in 8 weeks, weakness, fatigue, possibly related to malignancy #5. Iron deficiency anemia #6. Diabetes mellitus type 2 #7. Hypertension Plan: We'll obtain ultrasound of the right pleural effusion. Will proceed with right sided thoracentesis tomorrow morning, the pleural fluid will be sent for cytology. Continue with current medical treatment. I performed a history & physical examination of the patient and discussed their management with my nurse practitioner, Christina Ortega. I reviewed the nurse practitioner's note and agree with the documented findings and plan of care. Lung sounds are positive for diminished lung sounds over right lower lobe. The findings and the impression was discussed with the patient. I attest to the documentation by the nurse practitioner. Time with Patient: Greater than 30
--- NOTE | 2017-08-21 16:39 | P.CONS ---
History of Present Illness - Reason for Consult Consult date: 08/21/17 Renal Mass Requesting physician: Nikita Rudolph Jr - Chief Complaint weakness, SOB - History of Present Illness Abnormal Weight Loss Follow Up Visit Follow Up after CT Scan Night sweats Fatigue no appetite Shortness of Breath Pt is a very pleasant 56 year old male pt who was recently referred to Dr. Dasilva by Dr. Rudolph. Pt was in his normal state of health til mid May 2017 when he had rapid and progressive anorexia (40 lb weight loss in few months), SOB and occasional night sweats. CT Scan of chest showed right pleural effusion, had a thoracentesis that was non-diagnostic. Pt then reported increasing constipation, which he blamed on decreased oral intake, screening colonoscopy was done 3 years prior, he was found to have polyps. Night sweats persisted so he had CT AP that revealed large left renal mass and there was thickening of distal sigmoid colon noted. He was seen 08/20/17 in the office by Dr. Dasilva, he had complaints of progressive weakness, loss of stamina, difficulty standing, dressing, walking and all other ADLs. He was sent to [facility] for further efficient work-up and symptom management. His is at the bedside. Pt states he overall feels weak and fatigued, decreased appetite, no current nausea, his breathing is stable at this time, no pain to report. Review of Systems A 14 point review of systems assessed and completed and negative except HPI Constitutional: Reports fatigue Cardiovascular: Reports dyspnea on exertion, Reports palpitations, Reports rapid heart beat Respiratory: Reports cough, Reports dyspnea Gastrointestinal: Reports constipation Musculoskeletal: Reports low back pain Past Medical History Past Medical History: Diabetes Mellitus, Hypertension Additional Past Medical History / Comment(s): pleural effusion,"iron deficency anemia", pt stated on 08-16-17 testing foun mass on lt kidney and thickening in colon wall. 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 pt stated no appetite and weight down 40 # in approx 8 weeks. History of Any Multi-Drug Resistant Organisms: None Reported Additional Past Surgical History / Comment(s): colonoscopy. Right shoulder repair, rt knee cap scrapped 15 years ago, "rt lung fluid removed" Past Anesthesia/Blood Transfusion Reactions: No Reported Reaction Past Psychological History: No Psychological Hx Reported Smoking Status: Never smoker Past Alcohol Use History: Unable to Obtain Past Drug Use History: Unable to Obtain - Past Family History Father Family Medical History: Cancer Additional Family Medical History / Comment(s): from lung cancer Mother Family Medical History: Cancer Additional Family Medical History / Comment(s): 20 years ago from ultiple myeloma Medications and Allergies Home Medications Medication Instructions Recorded Confirmed Type Lisinopril [Zestril] 10 mg PO DAILY 07/23/17 08/20/17 History amLODIPine [Norvasc] 5 mg PO DAILY 07/23/17 08/20/17 History Multivitamins, Thera [Multivitamin 1 tab PO DAILY 08/20/17 08/20/17 History (formulary)] sitaGLIPtin PHOS/metFORMIN HCL 1 tab PO AC-BID 08/20/17 08/20/17 History [Janumet 50-1,000 mg Tablet] Allergies Allergy/AdvReac Type Severity Reaction Status Date / Time No Known Allergies Allergy Verified 08/20/17 15:24 Physical Exam Vitals: Vital Signs Temp Pulse Resp BP Pulse Ox 08/21/17 08:28 102 H 08/21/17 07:32 98.4 F 102 H 15 131/68 08/20/17 22:35 98.9 F 102 H 16 124/79 98 08/20/17 15:17 100.1 F H 108 H 16 125/77 96 Intake and Output 08/21/17 08/21/17 08/21/17 06:59 14:59 22:59 Other: Voiding Method Toilet # Voids 2 Weight 86.183 kg Patient Weight 08/22/17 06:59 Weight 86.183 kg - Constitutional General appearance: average body habitus, no acute distress - EENT Eyes: dentition normal ENT: normal oropharynx Ears: right: other - Neck Supple Neck: no lymphadenopathy - Respiratory Respiratory: right: CTA, left: diminished - Cardiovascular Tachycardia Heart sounds: normal: S1, S2 - Gastrointestinal General gastrointestinal: no absent bowel sounds, no decreased bowel sounds, no distended, no hepatomegaly, no hyperactive bowel sounds, normal bowel sounds, no organomegaly, no rigid, no scaphoid, soft, no splenomegaly, no tenderness, no umbilical hernia, no ventral hernia - Integumentary Integumentary: pale - Neurologic No focal Defects - Musculoskeletal Musculoskeletal: generalized weakness, strength equal bilaterally - Psychiatric Psychiatric: A&O x's 3, appropriate affect, intact judgment & insight Results CBC & Chem 7: 08/21/17 08:16 08/20/17 15:48 Labs: Abnormal Lab Results - Last 24 Hours (Table) 08/20/17 08/20/17 08/20/17 Range/Units 15:48 15:48 17:16 WBC 23.4 H (3.8-10.6) k/uL RBC 3.29 L (4.30-5.90) m/uL Hgb 8.2 L (13.0-17.5) gm/dL Hct 28.1 L (39.0-53.0) % MCH 24.8 L (25.0-35.0) pg MCHC 29.0 L (31.0-37.0) g/dL Plt Count 563 H (150-450) k/uL Neutrophils # 20.2 H (1.3-7.7) k/uL Monocytes # 1.1 H (0-1.0) k/uL Glucose 165 H (74-99) mg/dL POC Glucose (mg/dL) 154 H (75-99) mg/dL Calcium 8.2 L (8.4-10.2) mg/dL Alkaline Phosphatase 147 H (38-126) U/L Total Protein 5.7 L (6.3-8.2) g/dL Albumin 2.6 L (3.5-5.0) g/dL Urine Blood (Negative) Urine Mucus (None) /hpf 08/20/17 08/21/17 08/21/17 Range/Units 20:10 07:22 08:16 WBC 23.5 H (3.8-10.6) k/uL RBC 3.48 L (4.30-5.90) m/uL Hgb 8.5 L (13.0-17.5) gm/dL Hct 29.3 L (39.0-53.0) % MCH 24.5 L (25.0-35.0) pg MCHC 29.2 L (31.0-37.0) g/dL Plt Count 702 H (150-450) k/uL Neutrophils # 19.6 H (1.3-7.7) k/uL Monocytes # 1.3 H (0-1.0) k/uL Glucose (74-99) mg/dL POC Glucose (mg/dL) 221 H 206 H (75-99) mg/dL Calcium (8.4-10.2) mg/dL Alkaline Phosphatase (38-126) U/L Total Protein (6.3-8.2) g/dL Albumin (3.5-5.0) g/dL Urine Blood (Negative) Urine Mucus (None) /hpf 08/21/17 08/21/17 Range/Units 10:40 11:29 WBC (3.8-10.6) k/uL RBC (4.30-5.90) m/uL Hgb (13.0-17.5) gm/dL Hct (39.0-53.0) % MCH (25.0-35.0) pg MCHC (31.0-37.0) g/dL Plt Count (150-450) k/uL Neutrophils # (1.3-7.7) k/uL Monocytes # (0-1.0) k/uL Glucose (74-99) mg/dL POC Glucose (mg/dL) 230 H (75-99) mg/dL Calcium (8.4-10.2) mg/dL Alkaline Phosphatase (38-126) U/L Total Protein (6.3-8.2) g/dL Albumin (3.5-5.0) g/dL Urine Blood Trace H (Negative) Urine Mucus Rare H (None) /hpf CT scan - abdomen: report reviewed CT scan - chest: report reviewed CT scan - pelvis: report reviewed Assessment and Plan (1) Mural thickening of sigmoid colon Narrative/Plan: Plan is for colonoscopy, Dr. Babin seeing pt Current Visit: Yes Status: Acute Priority: High Code(s): K63.9 - DISEASE OF INTESTINE, UNSPECIFIED SNOMED Code(s): 571404619 (2) Renal mass Narrative/Plan: Irregular slightly hypodense mass in the within the anterior lateral left mid kidney measuring 7.1 X 9.3cm as well as extension in the inferior pole and 4.5cm renal cyst, concerning for underlying malignancy. Urology has seen pt. Current Visit: Yes Status: Acute Code(s): N28.89 - OTHER SPECIFIED DISORDERS OF KIDNEY AND URETER SNOMED Code(s): 088370621 (3) Normocytic anemia Narrative/Plan: Probable secondary to underlying malignancy, ferritin increased, iron levels low , few additional studies ordered. Monitor CBC Current Visit: Yes Status: Acute Priority: High Code(s): D64.9 - ANEMIA, UNSPECIFIED SNOMED Code(s): 103795927 (4) Pleural effusion Narrative/Plan: 1. Recurrent Effusion, previously no malignant cells identified, rec to repeat thora and cytology after scope. Current Visit: Yes Status: Acute Priority: High Code(s): J90 - PLEURAL EFFUSION, NOT ELSEWHERE CLASSIFIED SNOMED Code(s): 31194991 (5) Thrombocytosis Narrative/Plan: No acute intervention, possibly reactive Current Visit: Yes Status: Acute Priority: Medium Code(s): D47.3 - ESSENTIAL (HEMORRHAGIC) THROMBOCYTHEMIA SNOMED Code(s): 7647522 (6) Leukocytosis Narrative/Plan: Likely reactive, infection can be considered as low grade fever on admission. Miranda cultures pending Current Visit: Yes Status: Acute Priority: Medium Code(s): D72.829 - ELEVATED WHITE BLOOD CELL COUNT, UNSPECIFIED SNOMED Code(s): 416119014 Plan: Dr. Blas discussed plan with pt and . 1st colonoscopy will be done to see if there is target for biopsy there. If there is path and path is positive for a metastatic renal cell then no further work up biopsies would be necessary, if path returns positive for a colon primary then pt will need further eval of the recurrent effusion and renal mass with potential biopsy of renal mass as pt could be dealing with 2 primary malignancies. If colonoscopy is non-diagnostic then pleural effusion and renal mass will need to be evaluated. Pt and 's questions were answered. Physician Attestation: I have performed the history and examination of this patient, and discussed my findings with the narrator. I agree with this dictators note, written as a scribe.
[2017-08-21 17:02] LABS: Glucose,Whole Blood 229 mg/dL (75-99)
[2017-08-21 19:05] LABS: Hemoglobin A1C 8.3 % (4.0-6.0)
[2017-08-21 20:05] LABS: Glucose,Whole Blood 137 mg/dL (75-99)
[2017-08-21] MEDS: ALPRAZolam 0.25 MG TAB PO PRN (22:26)
[2017-08-22] MEDS: SODIUM CHLORIDE 0.9% 1,000 ML IV SCH ×2 (01:33→10:11)
[2017-08-22] MEDS: SODIUM FERRIC GLUCONAT-SUCROSE 125 MG in SODIUM CHLORIDE 0.9% 100 ML IVPB SCH ×2 (05:46→18:22)
--- NOTE | 2017-08-22 06:24 | P.PN ---
Subjective The patient is in the hospital with a 40 pound weight loss, large right pleural effusion, large left renal mass, thickened colon. He will undergo colonoscopy as well as repeat thoracentesis as we are trying to determine the cause of these issues. Objective - Vital Signs Vital signs: Vital Signs Temp 99.1 F 08/21/17 22:24 Pulse 101 H 08/21/17 22:24 Resp 16 08/21/17 22:24 BP 131/72 08/21/17 22:24 Pulse Ox 92 L 08/21/17 22:24 Intake & Output 08/21/17 08/21/17 08/22/17 06:59 18:59 06:59 Intake Total 1015 400 Balance 1015 400 Weight 86.183 kg Intake: IV 400 Sodium Chloride 0.9% 1, 400 000 ml @ 100 mls/hr IV . Q10H [facility] Rx#:[id number] Intake, IV Titration 900 Amount Dextrose 5%-0.45% NaCl 1, 800 000 ml @ 100 mls/hr IV . Q10H [facility] Rx#:[id number] Sodium Ferric Gluconat- 100 Sucrose 125 mg In Sodium Chloride 0.9% 100 ml @ 100 mls/hr IVPB Q12H [facility] Rx#:[id number] Oral 115 Other: Voiding Method Toilet Toilet # Voids 2 2 # Bowel Movements 3 - Labs CBC & Chem 7: 08/21/17 08:16 08/20/17 15:48 Labs: Abnormal Lab Results - Last 24 Hours (Table) 08/21/17 08/21/17 08/21/17 Range/Units 07:22 08:16 10:40 WBC 23.5 H (3.8-10.6) k/uL RBC 3.48 L (4.30-5.90) m/uL Hgb 8.5 L (13.0-17.5) gm/dL Hct 29.3 L (39.0-53.0) % MCH 24.5 L (25.0-35.0) pg MCHC 29.2 L (31.0-37.0) g/dL Plt Count 702 H (150-450) k/uL Neutrophils # 19.6 H (1.3-7.7) k/uL Monocytes # 1.3 H (0-1.0) k/uL POC Glucose (mg/dL) 206 H (75-99) mg/dL Urine Blood Trace H (Negative) Urine Mucus Rare H (None) /hpf 08/21/17 08/21/17 08/21/17 Range/Units 11:29 16:42 20:00 WBC (3.8-10.6) k/uL RBC (4.30-5.90) m/uL Hgb (13.0-17.5) gm/dL Hct (39.0-53.0) % MCH (25.0-35.0) pg MCHC (31.0-37.0) g/dL Plt Count (150-450) k/uL Neutrophils # (1.3-7.7) k/uL Monocytes # (0-1.0) k/uL POC Glucose (mg/dL) 230 H 229 H 137 H (75-99) mg/dL Urine Blood (Negative) Urine Mucus (None) /hpf Microbiology - Last 24 Hours (Table) 08/21/17 13:20 Urine Culture - Preliminary Urine,Voided
[2017-08-22 07:26] LABS: Glucose,Whole Blood 172 mg/dL (75-99)
[2017-08-22] MEDS: INSULIN ASPART 100 UNIT/ML 1 ML 10 ML VIAL SQ SCH ×4 (07:28→21:18)
[2017-08-22 07:51] LABS: Basophils # (A) 0.1 k/uL (0-0.2); Basophils % (A) 0 %; Eosinophils # (A) 0.3 k/uL (0-0.7); Eosinophils % (A) 2 %; HCT 28.1 % (39.0-53.0); Hypochromasia Marked; Lymphocytes # (A) 1.7 k/uL (1.0-4.8); Lymphocytes % (A) 8 %; MCH 24.2 pg (25.0-35.0); MCHC 28.6 g/dL (31.0-37.0); MCV 84.7 fL (80.0-100.0); Mean Platelet Volume 7.1; Monocytes # (A) 1.1 k/uL (0-1.0); Monocytes % (A) 5 %; Neutrophils # (A) 18.1 k/uL (1.3-7.7); Neutrophils % (A) 84 %; Platelet Count 624 k/uL (150-450); RBC 3.31 m/uL (4.30-5.90); WBC 21.5 k/uL (3.8-10.6)
[2017-08-22 08:08] LABS: ALT 54 U/L (21-72); AST 30 U/L (17-59); Albumin 2.5 g/dL (3.5-5.0); Alkaline Phosphatase 140 U/L (38-126); Anion Gap 11 mmol/L; Blood Urea Nitrogen 8 mg/dL (9-20); Carbon Dioxide 25 mmol/L (22-30); Chloride 105 mmol/L (98-107); Glucose 158 mg/dL (74-99); Potassium 4.8 mmol/L (3.5-5.1); Sodium 141 mmol/L (137-145); Total Bilirubin 0.5 mg/dL (0.2-1.3); Total Protein 5.4 g/dL (6.3-8.2)
[2017-08-22] MEDS: amLODIPine 5 MG TAB PO SCH (08:55)
[2017-08-22] MEDS: LISINOPRIL 10 MG TAB PO SCH (08:55)
[2017-08-22] MEDS: PANTOPRAZOLE 40 MG/10 ML VIAL IVP SCH (10:09)
[2017-08-22] MEDS: MULTIVITAMINS, THERA 1 EACH TAB PO SCH (10:14)
[2017-08-22 12:05] LABS: Glucose,Whole Blood 169 mg/dL (75-99)
--- NOTE | 2017-08-22 12:25 | P.PN ---
Subjective Progress Note Date: 08/22/17 Principal diagnosis: Recurrent right pleural effusion, left renal mass suspicious for neoplasm, unintentional weight loss, weakness and fatigue Darryl 56-year-old White male patient of Dr. Rudolph who was directly admitted to the hospital after being seen by Dr. Dasilva in the office for symptoms of profound weakness, fatigue, unintentional weight loss of 40 pounds in the last 8 weeks. Patient went to see Dr. Rudolph in the office on 07/03/2017 for symptoms of right-sided chest discomfort. A chest x-ray taken in the office showed a right-sided pleural effusion. CT of the chest was done on 07/10/2017 which showed small to moderate-sized right pleural effusion. She was referred to Dr. North, and the chest x-ray taken at Dr. Wilson's office again showed a small to moderate-sized pleural effusion. Patient had a ultrasound-guided thoracentesis would removal of 560 mL of sanguinous pleural fluid. The cytology came back negative. Patient was referred to Dr. 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 Dr. Dasilva diagnosed the patient with iron deficiency anemia, and also ordered CT of abdomen and pelvis. CT of abdomen and pelvis on 08/16/2017 showed a left renal mass suspicious for neoplasm, thickening of the distal sigmoid colon with multiple diverticuli, and underlying mass could not be excluded. A moderate- sized right pleural effusion was also seen. Patient was progressively becoming weak, he was requiring the assistance of his family members with even getting in and out of the car. His appetite is poor. Denies any chest pain at the present moment, however with exertion and even with conversation he becomes dyspneic and fatigued. He denied any fevers, but he reports night sweats. He has occasional productive cough with small amount of clear phlegm. He is a lifetime nonsmoker. His other medical history is positive for diabetes type 2 under good control, and hypertension. We were asked to see the patient in regards to his recurrent right pleural effusion. On 08/22/2017 patient seen again in follow-up on oncology floor. He is awaiting to be taken downstairs to the endoscopy suite for his EGD and colonoscopy by Dr. Babin today. Still remains weak and tired, but states he was able to sleep last night after a dose of Xanax was given to him. He is afebrile, vital signs are stable, he is on room air, with O2 sat at 92%. Lung sounds reveal diminished breath sounds over right lower lobe, with dullness over the same area, and clear lung sounds on the left. Occasional productive cough with production of clear sputum. He is nothing by mouth for the EGD and colonoscopy. We will proceed with right-sided thoracentesis today by Dr. Wilson in the afternoon after his procedures. Objective - Vital Signs Vital signs: Vital Signs Temp 98.8 F 08/22/17 07:00 Pulse 105 H 08/22/17 09:59 Resp 18 08/22/17 07:00 BP 120/72 08/22/17 07:00 Pulse Ox 92 L 08/22/17 07:00 Intake & Output 08/21/17 08/22/17 08/22/17 18:59 06:59 18:59 Intake Total 1015 1200 Balance 1015 1200 Weight 86.183 kg Intake: IV 1200 Sodium Chloride 0.9% 1, 1100 000 ml @ 100 mls/hr IV . Q10H [facility] Rx#:[id number] Sodium Ferric Gluconat- 100 Sucrose 125 mg In Sodium Chloride 0.9% 100 ml @ 100 mls/hr IVPB Q12H [facility] Rx#:[id number] Intake, IV Titration 900 Amount Dextrose 5%-0.45% NaCl 1, 800 000 ml @ 100 mls/hr IV . Q10H [facility] Rx#:[id number] Sodium Ferric Gluconat- 100 Sucrose 125 mg In Sodium Chloride 0.9% 100 ml @ 100 mls/hr IVPB Q12H [facility] Rx#:[id number] Oral 115 Other: Voiding Method Toilet Toilet Toilet # Voids 2 # Bowel Movements 3 - Exam GENERAL EXAM: Alert, pleasant, 56-year-old white male, comfortable in no apparent distress. HEAD: Normocephalic/atraumatic. EYES: Normal reaction of pupils, equal size. Conjunctiva pink, sclera white. NOSE: Clear with pink turbinates. THROAT: No erythema or exudates. NECK: No masses, no JVD, no thyroid enlargement, no adenopathy. CHEST: No chest wall deformity. Symmetrical expansion. LUNGS: Equal air entry with no crackles, wheeze, rhonchi. Lung sounds are diminished over right posterior lower lobe, there is dullness to percussion noted over right base CVS: Regular rate and rhythm, normal S1 and S2, no gallops, no murmurs, no rubs ABDOMEN: Soft, nontender. No hepatosplenomegaly, normal bowel sounds, no guarding or rigidity. EXTREMITIES: No clubbing, no edema, no cyanosis, 2+ pulses and upper and lower extremities. MUSCULOSKELETAL: Muscle strength and tone normal. SPINE: No scoliosis or deformity SKIN: No rashes CENTRAL NERVOUS SYSTEM: Alert and oriented -3. No focal deficits, tone is normal in all 4 extremities. PSYCHIATRIC: Alert and oriented -3. Appropriate affect. Intact judgment and insight. - Labs CBC & Chem 7: 08/22/17 07:20 08/22/17 07:20 Labs: Abnormal Lab Results - Last 24 Hours (Table) 08/21/17 08/21/17 08/21/17 Range/Units 08:16 16:42 20:00 WBC (3.8-10.6) k/uL RBC (4.30-5.90) m/uL Hgb (13.0-17.5) gm/dL Hct (39.0-53.0) % MCH (25.0-35.0) pg MCHC (31.0-37.0) g/dL Plt Count (150-450) k/uL Neutrophils # (1.3-7.7) k/uL Monocytes # (0-1.0) k/uL BUN (9-20) mg/dL Glucose (74-99) mg/dL POC Glucose (mg/dL) 229 H 137 H (75-99) mg/dL Hemoglobin A1c 8.3 H (4.0-6.0) % Calcium (8.4-10.2) mg/dL Alkaline Phosphatase (38-126) U/L Total Protein (6.3-8.2) g/dL Albumin (3.5-5.0) g/dL 08/22/17 08/22/17 08/22/17 Range/Units 07:10 07:20 07:20 WBC 21.5 H (3.8-10.6) k/uL RBC 3.31 L (4.30-5.90) m/uL Hgb 8.0 L (13.0-17.5) gm/dL Hct 28.1 L (39.0-53.0) % MCH 24.2 L (25.0-35.0) pg MCHC 28.6 L (31.0-37.0) g/dL Plt Count 624 H (150-450) k/uL Neutrophils # 18.1 H (1.3-7.7) k/uL Monocytes # 1.1 H (0-1.0) k/uL BUN 8 L (9-20) mg/dL Glucose 158 H (74-99) mg/dL POC Glucose (mg/dL) 172 H (75-99) mg/dL Hemoglobin A1c (4.0-6.0) % Calcium 8.0 L (8.4-10.2) mg/dL Alkaline Phosphatase 140 H (38-126) U/L Total Protein 5.4 L (6.3-8.2) g/dL Albumin 2.5 L (3.5-5.0) g/dL 08/22/17 Range/Units 12:02 WBC (3.8-10.6) k/uL RBC (4.30-5.90) m/uL Hgb (13.0-17.5) gm/dL Hct (39.0-53.0) % MCH (25.0-35.0) pg MCHC (31.0-37.0) g/dL Plt Count (150-450) k/uL Neutrophils # (1.3-7.7) k/uL Monocytes # (0-1.0) k/uL BUN (9-20) mg/dL Glucose (74-99) mg/dL POC Glucose (mg/dL) 169 H (75-99) mg/dL Hemoglobin A1c (4.0-6.0) % Calcium (8.4-10.2) mg/dL Alkaline Phosphatase (38-126) U/L Total Protein (6.3-8.2) g/dL Albumin (3.5-5.0) g/dL Microbiology - Last 24 Hours (Table) 08/21/17 13:20 Urine Culture - Preliminary Urine,Voided Assessment and Plan Plan: Assessment: #1. Recurrent right pleural effusion, status post ultrasound-guided thoracentesis on 07/31/2017 with removal of 560 mL of sanguinous pleural fluid. Pleural fluid cytology was negative for malignancy. #2. Left renal mass suspicious for neoplasm seen on the CT abdomen and pelvis on 08/16/2017 #3. Thickening of the distal sigmoid colon with multiple diverticuli, underlying mass could not be excluded, seen on the CT abdomen and pelvis on #4. Unintentional weight loss of 40 pounds in 8 weeks, weakness, fatigue, possibly related to malignancy #5. Iron deficiency anemia #6. Diabetes mellitus type 2 #7. Hypertension Plan: Patient is awaiting to be taken down for EGD and colonoscopy this afternoon at 2 :[address] Babin. We will proceed with right-sided thoracentesis recurrent right pleural effusion, presumably malignant unless proven otherwise. . I performed a history & physical examination of the patient and discussed their management with my nurse practitioner, Christina Ortega. I reviewed the nurse practitioner's note and agree with the documented findings and plan of care. Lung sounds are positive for diminished lung sounds over right lower lobe. The findings and the impression was discussed with the patient. I attest to the documentation by the nurse practitioner. Time with Patient: Less than 30
--- NOTE | 2017-08-22 13:38 | P.PN ---
Subjective 56-year-old male who was directly admitted to the hospital after he was seen by Dr. Dasilva outpatient. His primary care physician is Dr. Rudolph. The patient was originally referred to Dr. Dasilva by Dr. Rudolphs office for abnormal blood work. The patient underwent a CT of the chest on 2017 which revealed a small to moderate sized right pleural effusion. The patient underwent a thoracentesis on 07/31/2017 with removal of approximately 500 mL. Pleural fluid was negative for malignancy at that time. The patient then had a CT of the abdomen and pelvis completed on 08/16/2017 which revealed a left renal mass suspicious for neoplasm, thickening of the distal sigmoid colon with multiple diverticuli present, underlying mass is not excluded, and moderate right pleural effusion. The patient has become progressively weaker over the last 8 weeks. He states his appetite is poor. He reports weight loss of 40 pounds over the last 6-8 weeks. Denies shortness of breath at rest. Positive for dyspnea with exertion. Denies cough. Denies chest pain or pressure. Denies nausea or vomiting. Denies abdominal pain. Denies change in bowel habits. The patient was admitted to the hospital under the care of Dr. De Souza/ Klaudia. Consultations were placed to Gen. surgery, urology, and hematology oncology. 08/22/2017 Patient seen again in follow-up on oncology floor. He is waiting on EGD and colonoscopy by Dr. Babin today. he was able to sleep last night after a dose of Xanax I had ordered. He is nothing by mouth for the EGD and colonoscopy. Waiting on right-sided thoracentesis after his procedures.No chest pain, pressure, SOB, Nausea, vomiting, or melena. Objective - Vital Signs Vital signs: Vital Signs Temp 98.8 F 08/22/17 07:00 Pulse 105 H 08/22/17 09:59 Resp 18 08/22/17 07:00 BP 120/72 08/22/17 07:00 Pulse Ox 92 L 08/22/17 07:00 Intake & Output 08/21/17 08/22/17 08/22/17 18:59 06:59 18:59 Intake Total 1015 1200 Balance 1015 1200 Weight 86.183 kg Intake: IV 1200 Sodium Chloride 0.9% 1, 1100 000 ml @ 100 mls/hr IV . Q10H [facility] Rx#:[id number] Sodium Ferric Gluconat- 100 Sucrose 125 mg In Sodium Chloride 0.9% 100 ml @ 100 mls/hr IVPB Q12H [facility] Rx#:[id number] Intake, IV Titration 900 Amount Dextrose 5%-0.45% NaCl 1, 800 000 ml @ 100 mls/hr IV . Q10H [facility] Rx#:[id number] Sodium Ferric Gluconat- 100 Sucrose 125 mg In Sodium Chloride 0.9% 100 ml @ 100 mls/hr IVPB Q12H [facility] Rx#:[id number] Oral 115 Other: Voiding Method Toilet Toilet Toilet # Voids 2 # Bowel Movements 3 - Exam GENERAL: This is a 56-year-old male in no apparent distress at the time of examination. Pleasant and cooperative. Neck : supple.no thyromegaly, no lymphadenopathy RESPIRATORY: Clear to ausculation. Diminished lung sounds on right side. No use of accessory muscles. Patient maintaining oxygen saturation greater than 92 %. No chest wall tenderness is noted on palpation or with deep breathing. CARDIOVASCULAR: Regular rate and rhythm. S1 and S2 noted. No systolic or diastolic murmur auscultated. No JVD noted. No S3 or S4 noted. GASTROINTESTINAL: No distention noted. Abdomen soft and round. Normal active bowel sounds auscultated x 4 quadrants. No pain or tenderness noted upon palpation. INTEGUMENTARY: No cyanosis. No jaundice. No rashes noted. No cellulitis noted. EXTREMITIES: 2+ peripheral pulses. No evidence of peripheral edema. No calf tenderness noted. NEUROLOGIC: Cranial nerves II-XII intact. PSYCHIATRIC: Awake, alert, and oriented X 3. Appropriate affect. Intact judgement and insight. - Labs CBC & Chem 7: 08/22/17 07:20 08/22/17 07:20 Labs: Abnormal Lab Results - Last 24 Hours (Table) 08/21/17 08/21/17 08/21/17 Range/Units 08:16 16:42 20:00 WBC (3.8-10.6) k/uL RBC (4.30-5.90) m/uL Hgb (13.0-17.5) gm/dL Hct (39.0-53.0) % MCH (25.0-35.0) pg MCHC (31.0-37.0) g/dL Plt Count (150-450) k/uL Neutrophils # (1.3-7.7) k/uL Monocytes # (0-1.0) k/uL BUN (9-20) mg/dL Glucose (74-99) mg/dL POC Glucose (mg/dL) 229 H 137 H (75-99) mg/dL Hemoglobin A1c 8.3 H (4.0-6.0) % Calcium (8.4-10.2) mg/dL Alkaline Phosphatase (38-126) U/L Total Protein (6.3-8.2) g/dL Albumin (3.5-5.0) g/dL 08/22/17 08/22/17 08/22/17 Range/Units 07:10 07:20 07:20 WBC 21.5 H (3.8-10.6) k/uL RBC 3.31 L (4.30-5.90) m/uL Hgb 8.0 L (13.0-17.5) gm/dL Hct 28.1 L (39.0-53.0) % MCH 24.2 L (25.0-35.0) pg MCHC 28.6 L (31.0-37.0) g/dL Plt Count 624 H (150-450) k/uL Neutrophils # 18.1 H (1.3-7.7) k/uL Monocytes # 1.1 H (0-1.0) k/uL BUN 8 L (9-20) mg/dL Glucose 158 H (74-99) mg/dL POC Glucose (mg/dL) 172 H (75-99) mg/dL Hemoglobin A1c (4.0-6.0) % Calcium 8.0 L (8.4-10.2) mg/dL Alkaline Phosphatase 140 H (38-126) U/L Total Protein 5.4 L (6.3-8.2) g/dL Albumin 2.5 L (3.5-5.0) g/dL 08/22/17 Range/Units 12:02 WBC (3.8-10.6) k/uL RBC (4.30-5.90) m/uL Hgb (13.0-17.5) gm/dL Hct (39.0-53.0) % MCH (25.0-35.0) pg MCHC (31.0-37.0) g/dL Plt Count (150-450) k/uL Neutrophils # (1.3-7.7) k/uL Monocytes # (0-1.0) k/uL BUN (9-20) mg/dL Glucose (74-99) mg/dL POC Glucose (mg/dL) 169 H (75-99) mg/dL Hemoglobin A1c (4.0-6.0) % Calcium (8.4-10.2) mg/dL Alkaline Phosphatase (38-126) U/L Total Protein (6.3-8.2) g/dL Albumin (3.5-5.0) g/dL Microbiology - Last 24 Hours (Table) 08/21/17 13:20 Urine Culture - Preliminary Urine,Voided Assessment and Plan Plan: ASSESSMENT: Recurrent right pleural effusion, s/p thoracentesis on 07/31/2017 with 500 mL drained, pleural fluid negative for malignancy: repeat pending today Left renal mass, suspicious for renal cell carcinoma: actions pending Urology based on Colonscopy results Diabetes mellitus, type II, hemoglobin A1c 8.3, Novolog scale, will add PO meds to control that are liver metabolized Essential hypertension: stable. 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 will reevaluate in 24 hrs, add PO dm meds
--- NOTE | 2017-08-22 16:03 | XR ---
EXAMINATION TYPE: XR chest 1V portable DATE OF EXAM: 08/22/2017 COMPARISON: Prior chest x-ray 07/31/2017 HISTORY: Status post right thoracentesis TECHNIQUE: Single frontal view of the chest is obtained. FINDINGS: There is obscured right hemidiaphragm, blunting of the right costophrenic angle. No eviden t pneumothorax. Heart size is likely stable accounting for rotation, differences in technique. IMPRESSION: No pneumothorax status post thoracentesis.
[2017-08-22] MEDS ORDERED: PROPOFOL 10 MG/ML 20 ML VIAL IV ONE (16:39)
[2017-08-22] MEDS ORDERED: LIDOCAINE 1% INJ 10MG/ML (20 ML MDV) ONE (16:39)
[2017-08-22] MEDS ORDERED: IV FLUID CONTINUATION 1,000 ML IV ONE (16:43)
--- NOTE | 2017-08-22 17:20 | P.PCN ---
Date of Procedure: 08/22/17 Procedure(s) Performed: PREOPERATIVE DIAGNOSIS: Anemia, change in bowel habits, abnormal CAT scan POSTOPERATIVE DIAGNOSIS: Mild gastritis, small hiatal hernia, small colon polyps , diverticulosis PROCEDURE: 1. EGD with biopsy 2. Colonoscopy with snare polypectomy ANESTHESIA: [facility] SURGEON: Marbin Babin M.D. SPECIMENS: Antrum, polyps ENDOSCOPIC PROCEDURE: The patient was on the endoscopy table in the left decubitus position. The Olympus gastroscope was inserted into the oropharynx and passed under direct visualization to the region of the third portion of the duodenum. From that point the scope was slowly withdrawn inspecting all surfaces carefully. There were no neoplastic inflammatory or polypoid lesions throughout the duodenum. The pylorus was widely patent. The stomach was carefully inspected. There was mild gastritis. A biopsy of the antrum took place to rule out H. pylori. Retroflexion revealed a small sliding hiatal hernia. The esophagus was then carefully examined. There were no neoplastic inflammatory or polypoid lesions throughout the visualized esophagus. The patient was kept on the endoscopy table in the left decubitus position. The Olympus colonoscope was inserted into the anus and passed under direct visualization to the base of the cecum. The appendiceal orifice was visualized. From that point the scope was slowly withdrawn inspecting all surfaces carefully. There were no neoplastic inflammatory or polypoid lesions throughout the cecum and ascending colon. In the proximal transverse colon a small polyp was identified and removed using the snare with cautery technique. The remainder of the transverse and descending colon appeared normal. In the sigmoid another small polyp was identified and removed all at this point this polyp was so small that it appeared to be fulgurated completely and I do not believe a specimen was obtained. The remainder of the sigmoid colon and rectum appeared normal. There was moderate diverticulosis. There was some spasticity in the mid sigmoid that may have explained the recent abnormality on CAT scan. I suspect the patient may have had mild episodes of diverticulitis causing some chronic scarring. Digital rectal examination was normal. The patient was taken to the recovery room in stable condition per anesthesia guidelines. RECOMMENDATIONS: Await biopsy results. No GI source of bleeding seen. Continue workup of suspected malignant pleural effusion and left kidney mass.
[2017-08-22 17:35] LABS: Glucose,Whole Blood 167 mg/dL (75-99)
[2017-08-22 20:49] LABS: Glucose,Whole Blood 359 mg/dL (75-99)
[2017-08-22] MEDS: ACETAMINOPHEN TAB 325 MG TAB PO PRN (21:18)
[2017-08-22] MEDS: ALPRAZolam 0.25 MG TAB PO PRN (21:18)
--- NOTE | 2017-08-22 22:56 | OP ---
OPERATIVE REPORT OPERATION: Right-sided thoracentesis. PREOPERATIVE DIAGNOSIS: Right-sided pleural effusion. POSTOPERATIVE DIAGNOSIS: Right-sided pleural effusion. ANESTHESIA USED: 5 mL of 1% lidocaine. PROCEDURE: The patient was placed in a sitting upright position, the area below the right scapula was prepared in a sterile fashion and drapes were applied. The area was earlier localized by ultrasound. At the level of the eighth intercostal space and tip of the scapula, the area was locally anesthetized with lidocaine. Then a 26-gauge needle was inserted into the pleural space until the fluid was localized with the needle. Then a standard 11 scalpel was used, and a small tiny stab wound through the skin was made. A standard thoracentesis catheter and needle were used and advanced into the pleural space until the fluid was obtained and then the needle was pulled out of the pleural space and the catheter was advanced into the pleural space. Freely flowing fluid was removed, roughly 2400 mL of serosanguineous fluid was removed from the pleural space. Fluid was sent for different diagnostic studies, but mostly for cytology. Procedure was well tolerated, no evidence of any immediate complications, possibly a small, tiny apical pneumothorax was noted, but felt to be negative by Radiology. MMODL / IJN: [id number] /
[2017-08-23] MEDS: SODIUM CHLORIDE 0.9% 1,000 ML IV SCH ×4 (01:10→19:35)
[2017-08-23] MEDS: SODIUM FERRIC GLUCONAT-SUCROSE 125 MG in SODIUM CHLORIDE 0.9% 100 ML IVPB SCH (05:58)
[2017-08-23 07:13] LABS: Glucose,Whole Blood 184 mg/dL (75-99)
--- NOTE | 2017-08-23 07:43 | P.PN ---
Subjective The patient underwent colonoscopy and there are no significant pathologic findings. Thoracentesis will be done and pending the results of that is to further recommendations and treatment of the left renal mass. He will need a bone scan also. Objective - Vital Signs Vital signs: Vital Signs Temp 99.0 F 08/23/17 01:11 Pulse 109 H 08/22/17 22:25 Resp 16 08/22/17 22:25 BP 123/75 08/22/17 22:25 Pulse Ox 91 L 08/22/17 22:25 Intake & Output 08/22/17 08/23/17 08/23/17 18:59 06:59 18:59 Intake Total 1100 1390 Balance 1100 1390 Intake: IV 1100 800 Sodium Chloride 0.9% 1, 600 700 000 ml @ 100 mls/hr IV . Q10H [facility] Rx#:[id number] Sodium Ferric Gluconat- 100 100 Sucrose 125 mg In Sodium Chloride 0.9% 100 ml @ 100 mls/hr IVPB Q12H [facility] Rx#:[id number] Oral 590 Other: Voiding Method Toilet Toilet # Voids 2 2 - Labs CBC & Chem 7: 08/22/17 07:20 08/22/17 07:20 Labs: Abnormal Lab Results - Last 24 Hours (Table) 08/22/17 08/22/17 08/22/17 Range/Units 07:20 07:20 12:02 WBC 21.5 H (3.8-10.6) k/uL RBC 3.31 L (4.30-5.90) m/uL Hgb 8.0 L (13.0-17.5) gm/dL Hct 28.1 L (39.0-53.0) % MCH 24.2 L (25.0-35.0) pg MCHC 28.6 L (31.0-37.0) g/dL Plt Count 624 H (150-450) k/uL Neutrophils # 18.1 H (1.3-7.7) k/uL Monocytes # 1.1 H (0-1.0) k/uL BUN 8 L (9-20) mg/dL Glucose 158 H (74-99) mg/dL POC Glucose (mg/dL) 169 H (75-99) mg/dL Calcium 8.0 L (8.4-10.2) mg/dL Alkaline Phosphatase 140 H (38-126) U/L Total Protein 5.4 L (6.3-8.2) g/dL Albumin 2.5 L (3.5-5.0) g/dL 08/22/17 08/22/17 08/23/17 Range/Units 17:30 20:48 07:11 WBC (3.8-10.6) k/uL RBC (4.30-5.90) m/uL Hgb (13.0-17.5) gm/dL Hct (39.0-53.0) % MCH (25.0-35.0) pg MCHC (31.0-37.0) g/dL Plt Count (150-450) k/uL Neutrophils # (1.3-7.7) k/uL Monocytes # (0-1.0) k/uL BUN (9-20) mg/dL Glucose (74-99) mg/dL POC Glucose (mg/dL) 167 H 359 H 184 H (75-99) mg/dL Calcium (8.4-10.2) mg/dL Alkaline Phosphatase (38-126) U/L Total Protein (6.3-8.2) g/dL Albumin (3.5-5.0) g/dL Microbiology - Last 24 Hours (Table) 08/21/17 13:20 Urine Culture - Final Urine,Voided
[2017-08-23 07:49] LABS: Basophils # (A) 0.1 k/uL (0-0.2); Basophils % (A) 0 %; Eosinophils # (A) 0.3 k/uL (0-0.7); Eosinophils % (A) 1 %; HCT 29.8 % (39.0-53.0); HGB 8.4 gm/dL (13.0-17.5); Hypochromasia Marked; Lymphocytes # (A) 1.9 k/uL (1.0-4.8); Lymphocytes % (A) 8 %; MCH 23.8 pg (25.0-35.0); MCHC 28.2 g/dL (31.0-37.0); MCV 84.6 fL (80.0-100.0); Monocytes # (A) 0.9 k/uL (0-1.0); Monocytes % (A) 4 %; Neutrophils % (A) 85 %; Platelet Count 616 k/uL (150-450); RBC 3.52 m/uL (4.30-5.90); RDW 13.1 % (11.5-15.5); WBC 23.4 k/uL (3.8-10.6)
[2017-08-23 08:14] LABS: ALT 46 U/L (21-72); AST 18 U/L (17-59); Albumin 2.3 g/dL (3.5-5.0); Alkaline Phosphatase 126 U/L (38-126); Anion Gap 9 mmol/L; Blood Urea Nitrogen 8 mg/dL (9-20); Calcium 7.9 mg/dL (8.4-10.2); Carbon Dioxide 25 mmol/L (22-30); Chloride 106 mmol/L (98-107); Glucose 173 mg/dL (74-99); Magnesium 1.9 mg/dL (1.6-2.3); Potassium 4.7 mmol/L (3.5-5.1); Sodium 140 mmol/L (137-145); Total Bilirubin 0.4 mg/dL (0.2-1.3); Total Protein 5.1 g/dL (6.3-8.2)
[2017-08-23] MEDS: amLODIPine 5 MG TAB PO SCH (08:48)
[2017-08-23] MEDS: INSULIN ASPART 100 UNIT/ML 1 ML 10 ML VIAL SQ SCH ×4 (08:48→21:33)
[2017-08-23] MEDS: ACETAMINOPHEN TAB 325 MG TAB PO PRN ×2 (08:49→21:32)
[2017-08-23] MEDS: LISINOPRIL 10 MG TAB PO SCH (08:49)
[2017-08-23] MEDS: LINAGLIPTIN 5 MG TABLET PO SCH (08:49)
[2017-08-23] MEDS: PIOGLITAZONE 30 MG TAB PO SCH (08:49)
[2017-08-23 09:04] LABS: INR 1.4 (<1.2); Prothrombin Time 13.2 sec (9.0-12.0)
--- NOTE | 2017-08-23 09:52 | XR ---
EXAMINATION TYPE: XR chest 1V portable DATE OF EXAM: 08/23/2017 COMPARISON: Prior chest x-ray 08/22/2017 HISTORY: Post right thoracentesis TECHNIQUE: Single frontal view of the chest is obtained. FINDINGS: Persistent abnormal increased density present at the right costophrenic angle level. A por tion of the right hemidiaphragm is demonstrated. Findings are similar to prior exam. IMPRESSION: Correlate for lower lobe atelectasis versus pneumonia, there may be a small amount of re sidual fluid, follow-up to resolution.
[2017-08-23] MEDS: PANTOPRAZOLE 40 MG/10 ML VIAL IVP SCH (10:01)
[2017-08-23] MEDS: MULTIVITAMINS, THERA 1 EACH TAB PO SCH (10:02)
[2017-08-23 11:58] LABS: Glucose,Whole Blood 251 mg/dL (75-99)
--- NOTE | 2017-08-23 15:05 | P.PN ---
Subjective Progress Note Date: 08/23/17 Principal diagnosis: Anemia Patient feels well today. Appetite improved. No rectal bleeding or melena. Cytology from pleural effusion pending. Objective - Vital Signs Vital signs: Vital Signs Temp 98.8 F 08/23/17 09:43 Pulse 105 H 08/23/17 10:06 Resp 16 08/23/17 10:06 BP 129/74 08/23/17 07:00 Pulse Ox 92 L 08/23/17 07:00 Intake & Output 08/22/17 08/23/17 08/23/17 18:59 06:59 18:59 Intake Total 1100 1390 1400 Balance 1100 1390 1400 Weight 86.183 kg Intake: IV 1100 800 800 Sodium Chloride 0.9% 1, 600 700 700 000 ml @ 100 mls/hr IV . Q10H [facility] Rx#:[id number] Sodium Ferric Gluconat- 100 100 100 Sucrose 125 mg In Sodium Chloride 0.9% 100 ml @ 100 mls/hr IVPB Q12H [facility] Rx#:[id number] Oral 590 600 Other: Voiding Method Toilet Toilet Toilet # Voids 2 2 2 - Exam Abdomen: Soft, nondistended, nontender - Labs CBC & Chem 7: 08/23/17 07:23 08/23/17 07:23 Labs: Abnormal Lab Results - Last 24 Hours (Table) 08/22/17 08/22/17 08/23/17 Range/Units 17:30 20:48 07:11 WBC (3.8-10.6) k/uL RBC (4.30-5.90) m/uL Hgb (13.0-17.5) gm/dL Hct (39.0-53.0) % MCH (25.0-35.0) pg MCHC (31.0-37.0) g/dL Plt Count (150-450) k/uL Neutrophils # (1.3-7.7) k/uL PT (9.0-12.0) sec INR (<1.2) BUN (9-20) mg/dL Glucose (74-99) mg/dL POC Glucose (mg/dL) 167 H 359 H 184 H (75-99) mg/dL Calcium (8.4-10.2) mg/dL Total Protein (6.3-8.2) g/dL Albumin (3.5-5.0) g/dL 08/23/17 08/23/17 08/23/17 Range/Units 07:23 07:23 08:45 WBC 23.4 H (3.8-10.6) k/uL RBC 3.52 L (4.30-5.90) m/uL Hgb 8.4 L (13.0-17.5) gm/dL Hct 29.8 L (39.0-53.0) % MCH 23.8 L (25.0-35.0) pg MCHC 28.2 L (31.0-37.0) g/dL Plt Count 616 H (150-450) k/uL Neutrophils # 20.0 H (1.3-7.7) k/uL PT 13.2 H (9.0-12.0) sec INR 1.4 H (<1.2) BUN 8 L (9-20) mg/dL Glucose 173 H (74-99) mg/dL POC Glucose (mg/dL) (75-99) mg/dL Calcium 7.9 L (8.4-10.2) mg/dL Total Protein 5.1 L (6.3-8.2) g/dL Albumin 2.3 L (3.5-5.0) g/dL 08/23/17 Range/Units 11:56 WBC (3.8-10.6) k/uL RBC (4.30-5.90) m/uL Hgb (13.0-17.5) gm/dL Hct (39.0-53.0) % MCH (25.0-35.0) pg MCHC (31.0-37.0) g/dL Plt Count (150-450) k/uL Neutrophils # (1.3-7.7) k/uL PT (9.0-12.0) sec INR (<1.2) BUN (9-20) mg/dL Glucose (74-99) mg/dL POC Glucose (mg/dL) 251 H (75-99) mg/dL Calcium (8.4-10.2) mg/dL Total Protein (6.3-8.2) g/dL Albumin (3.5-5.0) g/dL Microbiology - Last 24 Hours (Table) 08/21/17 13:20 Urine Culture - Final Urine,Voided Assessment and Plan (1) Anemia Narrative/Plan: Continue diet as tolerated. Continue workup of the patient's known malignancy. We'll sign off at this point. Please contact if needed. Current Visit: Yes Status: Acute Code(s): D64.9 - ANEMIA, UNSPECIFIED SNOMED Code(s): 916908887
--- NOTE | 2017-08-23 15:52 | P.PN ---
Subjective 56-year-old male who was directly admitted to the hospital after he was seen by Dr. Dasilva outpatient. His primary care physician is Dr. Rudolph. The patient was originally referred to Dr. Dasilva by Dr. Rudolphs office for abnormal blood work. The patient underwent a CT of the chest on 2017 which revealed a small to moderate sized right pleural effusion. The patient underwent a thoracentesis on 07/31/2017 with removal of approximately 500 mL. Pleural fluid was negative for malignancy at that time. The patient then had a CT of the abdomen and pelvis completed on 08/16/2017 which revealed a left renal mass suspicious for neoplasm, thickening of the distal sigmoid colon with multiple diverticuli present, underlying mass is not excluded, and moderate right pleural effusion. The patient has become progressively weaker over the last 8 weeks. He states his appetite is poor. He reports weight loss of 40 pounds over the last 6-8 weeks. Denies shortness of breath at rest. Positive for dyspnea with exertion. Denies cough. Denies chest pain or pressure. Denies nausea or vomiting. Denies abdominal pain. Denies change in bowel habits. The patient was admitted to the hospital under the care of Dr. De Souza/ Klaudia. Consultations were placed to Gen. surgery, urology, and hematology oncology. 08/22/2017 Patient seen again in follow-up on oncology floor. He is waiting on EGD and colonoscopy by Dr. Babin today. he was able to sleep last night after a dose of Xanax I had ordered. He is nothing by mouth for the EGD and colonoscopy. Waiting on right-sided thoracentesis after his procedures.No chest pain, pressure, SOB, Nausea, vomiting, or melena. 08/23/2017 Patient is feeling much better today. EGD and colonoscopy were not very diagnostic. He is status post thoracentesis and fluid evaluation is pending as well. Xanax continues to help with sleep and mood. He denies any chest pain pressure shortness of breath nausea vomiting or melena. We discussed him going home possibly tomorrow. With his leukocytosis and left shift, the nurse informs me that Dr. Ag does not believe this is infection at this time. Objective - Vital Signs Vital signs: Vital Signs Temp 98.3 F 08/23/17 15:00 Pulse 103 H 08/23/17 15:09 Resp 18 08/23/17 15:09 BP 125/65 08/23/17 15:00 Pulse Ox 95 08/23/17 15:00 Intake & Output 08/22/17 08/23/17 08/23/17 18:59 06:59 18:59 Intake Total 1100 1390 1400 Balance 1100 1390 1400 Weight 86.183 kg Intake: IV 1100 800 800 Sodium Chloride 0.9% 1, 600 700 700 000 ml @ 100 mls/hr IV . Q10H [facility] Rx#:[id number] Sodium Ferric Gluconat- 100 100 100 Sucrose 125 mg In Sodium Chloride 0.9% 100 ml @ 100 mls/hr IVPB Q12H [facility] Rx#:[id number] Oral 590 600 Other: Voiding Method Toilet Toilet Toilet # Voids 2 2 2 - Exam GENERAL: This is a 56-year-old male in no apparent distress at the time of examination. Pleasant and cooperative. Neck : supple.no thyromegaly, no lymphadenopathy RESPIRATORY: Clear to ausculation. Diminished lung sounds on right side. No use of accessory muscles. Patient maintaining oxygen saturation greater than 92 %. No chest wall tenderness is noted on palpation or with deep breathing. CARDIOVASCULAR: Regular rate and rhythm. S1 and S2 noted. No systolic or diastolic murmur auscultated. No JVD noted. No S3 or S4 noted. GASTROINTESTINAL: No distention noted. Abdomen soft and round. Normal active bowel sounds auscultated x 4 quadrants. No pain or tenderness noted upon palpation. INTEGUMENTARY: No cyanosis. No jaundice. No rashes noted. No cellulitis noted. EXTREMITIES: 2+ peripheral pulses. No evidence of peripheral edema. No calf tenderness noted. NEUROLOGIC: Cranial nerves II-XII intact. PSYCHIATRIC: Awake, alert, and oriented X 3. Appropriate affect. Intact judgement and insight. - Labs CBC & Chem 7: 08/23/17 07:23 08/23/17 07:23 Labs: Abnormal Lab Results - Last 24 Hours (Table) 08/22/17 08/22/17 08/23/17 Range/Units 17:30 20:48 07:11 WBC (3.8-10.6) k/uL RBC (4.30-5.90) m/uL Hgb (13.0-17.5) gm/dL Hct (39.0-53.0) % MCH (25.0-35.0) pg MCHC (31.0-37.0) g/dL Plt Count (150-450) k/uL Neutrophils # (1.3-7.7) k/uL PT (9.0-12.0) sec INR (<1.2) BUN (9-20) mg/dL Glucose (74-99) mg/dL POC Glucose (mg/dL) 167 H 359 H 184 H (75-99) mg/dL Calcium (8.4-10.2) mg/dL Total Protein (6.3-8.2) g/dL Albumin (3.5-5.0) g/dL 08/23/17 08/23/17 08/23/17 Range/Units 07:23 07:23 08:45 WBC 23.4 H (3.8-10.6) k/uL RBC 3.52 L (4.30-5.90) m/uL Hgb 8.4 L (13.0-17.5) gm/dL Hct 29.8 L (39.0-53.0) % MCH 23.8 L (25.0-35.0) pg MCHC 28.2 L (31.0-37.0) g/dL Plt Count 616 H (150-450) k/uL Neutrophils # 20.0 H (1.3-7.7) k/uL PT 13.2 H (9.0-12.0) sec INR 1.4 H (<1.2) BUN 8 L (9-20) mg/dL Glucose 173 H (74-99) mg/dL POC Glucose (mg/dL) (75-99) mg/dL Calcium 7.9 L (8.4-10.2) mg/dL Total Protein 5.1 L (6.3-8.2) g/dL Albumin 2.3 L (3.5-5.0) g/dL 08/23/17 Range/Units 11:56 WBC (3.8-10.6) k/uL RBC (4.30-5.90) m/uL Hgb (13.0-17.5) gm/dL Hct (39.0-53.0) % MCH (25.0-35.0) pg MCHC (31.0-37.0) g/dL Plt Count (150-450) k/uL Neutrophils # (1.3-7.7) k/uL PT (9.0-12.0) sec INR (<1.2) BUN (9-20) mg/dL Glucose (74-99) mg/dL POC Glucose (mg/dL) 251 H (75-99) mg/dL Calcium (8.4-10.2) mg/dL Total Protein (6.3-8.2) g/dL Albumin (3.5-5.0) g/dL Microbiology - Last 24 Hours (Table) 08/21/17 13:20 Urine Culture - Final Urine,Voided Assessment and Plan Plan: ASSESSMENT: Recurrent right pleural effusion, s/p thoracentesis on 07/31/2017 and 2017 , path pending Left renal mass, suspicious for renal cell carcinoma: furhter w/u per Urology pending Diabetes mellitus, type II, hemoglobin A1c 8.3, Novolog scale, will add PO meds to control that are liver metabolized. He was previously on Janumet Essential hypertension: stable. continue Lisinopril chronic anemia, normocytic: plan per Hem/ONC Unintentional weight loss of 40 lbs in last 6-8 weeks: cancer w/u in progress Moderate to severe calorie protein malnutrition: as above Insomnia: continue xanax prn Anxiety: as above DVT prophylaxis: frequent ambulation/ SCDs GI prophylaxis: cont Pantoprazole PLAN: wait on internal consultant recommendations and further testing. will reevaluate in 24 hrs, add PO dm meds, continue diet
--- NOTE | 2017-08-23 16:55 | P.PN ---
Subjective Progress Note Date: 08/23/17 Principal diagnosis: Recurrent right pleural effusion, left renal mass suspicious for neoplasm, unintentional weight loss, weakness and fatigue Darryl 56-year-old White male patient of Dr. Rudolph who was directly admitted to the hospital after being seen by Dr. Dasilva in the office for symptoms of profound weakness, fatigue, unintentional weight loss of 40 pounds in the last 8 weeks. Patient went to see Dr. Rudolph in the office on 07/03/2017 for symptoms of right-sided chest discomfort. A chest x-ray taken in the office showed a right-sided pleural effusion. CT of the chest was done on 07/10/2017 which showed small to moderate-sized right pleural effusion. She was referred to Dr. North, and the chest x-ray taken at Dr. Wilson's office again showed a small to moderate-sized pleural effusion. Patient had a ultrasound-guided thoracentesis would removal of 560 mL of sanguinous pleural fluid. The cytology came back negative. Patient was referred to Dr. 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 Dr. Dasilva diagnosed the patient with iron deficiency anemia, and also ordered CT of abdomen and pelvis. CT of abdomen and pelvis on 08/16/2017 showed a left renal mass suspicious for neoplasm, thickening of the distal sigmoid colon with multiple diverticuli, and underlying mass could not be excluded. A moderate- sized right pleural effusion was also seen. Patient was progressively becoming weak, he was requiring the assistance of his family members with even getting in and out of the car. His appetite is poor. Denies any chest pain at the present moment, however with exertion and even with conversation he becomes dyspneic and fatigued. He denied any fevers, but he reports night sweats. He has occasional productive cough with small amount of clear phlegm. He is a lifetime nonsmoker. His other medical history is positive for diabetes type 2 under good control, and hypertension. We were asked to see the patient in regards to his recurrent right pleural effusion. On 08/22/2017 patient seen again in follow-up on oncology floor. He is awaiting to be taken downstairs to the endoscopy suite for his EGD and colonoscopy by Dr. Babin today. Still remains weak and tired, but states he was able to sleep last night after a dose of Xanax was given to him. He is afebrile, vital signs are stable, he is on room air, with O2 sat at 92%. Lung sounds reveal diminished breath sounds over right lower lobe, with dullness over the same area, and clear lung sounds on the left. Occasional productive cough with production of clear sputum. He is nothing by mouth for the EGD and colonoscopy. We will proceed with right-sided thoracentesis today by Dr. Wilson in the afternoon after his procedures. On 08/23/2017 patient is seen in follow-up. Yesterday he underwent right thoracentesis would removal of 2400 mL of serosanguineous pleural fluid. Fluid cytology is pending at this time. Patient also underwent EGD and colonoscopy, please refer to the operative note by Dr. Babin. Today patient reports feeling better, improved appetite, he is actually hungry today. A bit more energy. Denies any acute dyspnea, but still states he becomes dyspneic with exertion, thinks he may be related to his anemia. Today's labs show WBC of 23.4, hemoglobin is 8.4, INR is 1.4, electrolytes are within normal limits, BUN is 8, creatinine is 0.79. Patient is on room air, with pulse ox of 92%. Did have some low-grade fevers last night with a T-max of 100.7F. He remains slightly tachycardic with a heart rate at 105 BPM. The patient states he feels somewhat better today. Was able to sleep last night. Objective - Vital Signs Vital signs: Vital Signs Temp 98.8 F 08/23/17 09:43 Pulse 105 H 08/23/17 10:06 Resp 16 08/23/17 10:06 BP 129/74 08/23/17 07:00 Pulse Ox 92 L 08/23/17 07:00 Intake & Output 08/22/17 08/23/17 08/23/17 18:59 06:59 18:59 Intake Total 1100 1390 Balance 1100 1390 Weight 86.183 kg Intake: IV 1100 800 Sodium Chloride 0.9% 1, 600 700 000 ml @ 100 mls/hr IV . Q10H [facility] Rx#:[id number] Sodium Ferric Gluconat- 100 100 Sucrose 125 mg In Sodium Chloride 0.9% 100 ml @ 100 mls/hr IVPB Q12H [facility] Rx#:[id number] Oral 590 Other: Voiding Method Toilet Toilet Toilet # Voids 2 2 - Exam GENERAL EXAM: Alert, pleasant, 56-year-old white male, comfortable in no apparent distress. HEAD: Normocephalic/atraumatic. EYES: Normal reaction of pupils, equal size. Conjunctiva pink, sclera white. NOSE: Clear with pink turbinates. THROAT: No erythema or exudates. NECK: No masses, no JVD, no thyroid enlargement, no adenopathy. CHEST: No chest wall deformity. Symmetrical expansion. LUNGS: Equal air entry with no crackles, wheeze, rhonchi. Lung sounds are diminished over right posterior lower lobe, a few scattered rales noted CVS: Regular rate and rhythm, normal S1 and S2, no gallops, no murmurs, no rubs ABDOMEN: Soft, nontender. No hepatosplenomegaly, normal bowel sounds, no guarding or rigidity. EXTREMITIES: No clubbing, no edema, no cyanosis, 2+ pulses and upper and lower extremities. MUSCULOSKELETAL: Muscle strength and tone normal. SPINE: No scoliosis or deformity SKIN: No rashes CENTRAL NERVOUS SYSTEM: Alert and oriented -3. No focal deficits, tone is normal in all 4 extremities. PSYCHIATRIC: Alert and oriented -3. Appropriate affect. Intact judgment and insight. - Labs CBC & Chem 7: 08/23/17 07:23 08/23/17 07:23 Labs: Abnormal Lab Results - Last 24 Hours (Table) 08/22/17 08/22/17 08/23/17 Range/Units 17:30 20:48 07:11 WBC (3.8-10.6) k/uL RBC (4.30-5.90) m/uL Hgb (13.0-17.5) gm/dL Hct (39.0-53.0) % MCH (25.0-35.0) pg MCHC (31.0-37.0) g/dL Plt Count (150-450) k/uL Neutrophils # (1.3-7.7) k/uL PT (9.0-12.0) sec INR (<1.2) BUN (9-20) mg/dL Glucose (74-99) mg/dL POC Glucose (mg/dL) 167 H 359 H 184 H (75-99) mg/dL Calcium (8.4-10.2) mg/dL Total Protein (6.3-8.2) g/dL Albumin (3.5-5.0) g/dL 08/23/17 08/23/17 08/23/17 Range/Units 07:23 07:23 08:45 WBC 23.4 H (3.8-10.6) k/uL RBC 3.52 L (4.30-5.90) m/uL Hgb 8.4 L (13.0-17.5) gm/dL Hct 29.8 L (39.0-53.0) % MCH 23.8 L (25.0-35.0) pg MCHC 28.2 L (31.0-37.0) g/dL Plt Count 616 H (150-450) k/uL Neutrophils # 20.0 H (1.3-7.7) k/uL PT 13.2 H (9.0-12.0) sec INR 1.4 H (<1.2) BUN 8 L (9-20) mg/dL Glucose 173 H (74-99) mg/dL POC Glucose (mg/dL) (75-99) mg/dL Calcium 7.9 L (8.4-10.2) mg/dL Total Protein 5.1 L (6.3-8.2) g/dL Albumin 2.3 L (3.5-5.0) g/dL 08/23/17 Range/Units 11:56 WBC (3.8-10.6) k/uL RBC (4.30-5.90) m/uL Hgb (13.0-17.5) gm/dL Hct (39.0-53.0) % MCH (25.0-35.0) pg MCHC (31.0-37.0) g/dL Plt Count (150-450) k/uL Neutrophils # (1.3-7.7) k/uL PT (9.0-12.0) sec INR (<1.2) BUN (9-20) mg/dL Glucose (74-99) mg/dL POC Glucose (mg/dL) 251 H (75-99) mg/dL Calcium (8.4-10.2) mg/dL Total Protein (6.3-8.2) g/dL Albumin (3.5-5.0) g/dL Microbiology - Last 24 Hours (Table) 08/21/17 13:20 Urine Culture - Final Urine,Voided Assessment and Plan Plan: Assessment: #1. Recurrent right pleural effusion, status post ultrasound-guided thoracentesis on 07/31/2017 with removal of 560 mL of sanguinous pleural fluid. Pleural fluid cytology was negative for malignancy. Patient underwent right- sided thoracentesis by Dr. Wilson on 08/22/2017 with removal of 2400 mL of serosanguineous pleural fluid, fluid cytology is still pending at this time. #2. Left renal mass suspicious for neoplasm seen on the CT abdomen and pelvis on 08/16/2017 #3. Thickening of the distal sigmoid colon with multiple diverticuli, underlying mass could not be excluded, seen on the CT abdomen and pelvis on #4. Unintentional weight loss of 40 pounds in 8 weeks, weakness, fatigue, possibly related to malignancy #5. Iron deficiency anemia #6. Diabetes mellitus type 2 #7. Hypertension Plan: We will consult cardiothoracic surgery in regards to placement of Pleurx catheter for patient's recurrent right-sided pleural effusion. Pleural fluid cytology still pending at this time. Patient did have a low-grade fevers last night with T-max of 100.7F. But overall he looks and feels better today. He was able to sleep last night, he reports less fatigued today, his appetite is better. His vital signs are stable. He is on room air, his O2 sat is 92%. Repeat chest x-ray from this morning showed right lower lobe atelectasis with a small amount of residual fluid. Patient had his EGD and colonoscopy yesterday, the operative report was noted. I performed a history & physical examination of the patient and discussed their management with my nurse practitioner, Christina Ortega. I reviewed the nurse practitioner's note and agree with the documented findings and plan of care. Lung sounds are positive for diminished lung sounds over right lower lobe with a few scattered rales. The findings and the impression was discussed with the patient. I attest to the documentation by the nurse practitioner. Time with Patient: Less than 30
[2017-08-23 17:06] LABS: Glucose,Whole Blood 197 mg/dL (75-99)
[2017-08-23 19:54] LABS: Glucose,Whole Blood 197 mg/dL (75-99)
[2017-08-24 06:50] LABS: Glucose,Whole Blood 165 mg/dL (75-99)
[2017-08-24 07:20] LABS: Basophils # (A) 0.1 k/uL (0-0.2); Basophils % (A) 1 %; Eosinophils # (A) 0.5 k/uL (0-0.7); Eosinophils % (A) 2 %; HCT 26.4 % (39.0-53.0); HGB 7.5 gm/dL (13.0-17.5); Hypochromasia Marked; Lymphocytes # (A) 1.5 k/uL (1.0-4.8); Lymphocytes % (A) 7 %; MCH 24.4 pg (25.0-35.0); MCHC 28.5 g/dL (31.0-37.0); MCV 85.6 fL (80.0-100.0); Mean Platelet Volume 7.2; Monocytes # (A) 0.8 k/uL (0-1.0); Monocytes % (A) 4 %; Neutrophils # (A) 19.3 k/uL (1.3-7.7); Neutrophils % (A) 86 %; Platelet Count 562 k/uL (150-450); RBC 3.08 m/uL (4.30-5.90); RDW 13.7 % (11.5-15.5); WBC 22.5 k/uL (3.8-10.6)
[2017-08-24 07:34] LABS: ALT 34 U/L (21-72); AST 15 U/L (17-59); Albumin 2.1 g/dL (3.5-5.0); Alkaline Phosphatase 109 U/L (38-126); Anion Gap 6 mmol/L; Blood Urea Nitrogen 8 mg/dL (9-20); Calcium 7.6 mg/dL (8.4-10.2); Carbon Dioxide 25 mmol/L (22-30); Chloride 107 mmol/L (98-107); Glucose 151 mg/dL (74-99); Potassium 4.8 mmol/L (3.5-5.1); Sodium 138 mmol/L (137-145); Total Bilirubin 0.3 mg/dL (0.2-1.3); Total Protein 4.8 g/dL (6.3-8.2)
[2017-08-24 07:53] VITALS: BP 127/69; PULSE 103; RESP 16; TEMP 99
[2017-08-24] MEDS: INSULIN ASPART 100 UNIT/ML 1 ML 10 ML VIAL SQ SCH ×2 (08:11→12:30)
[2017-08-24] MEDS: LINAGLIPTIN 5 MG TABLET PO SCH (08:12)
[2017-08-24] MEDS: amLODIPine 5 MG TAB PO SCH (08:12)
[2017-08-24] MEDS: PIOGLITAZONE 30 MG TAB PO SCH (08:12)
[2017-08-24] MEDS: SODIUM CHLORIDE 0.9% 1,000 ML IV SCH (08:12)
[2017-08-24] MEDS: LISINOPRIL 10 MG TAB PO SCH (08:12)
[2017-08-24] MEDS: PANTOPRAZOLE 40 MG/10 ML VIAL IVP SCH (08:12)
--- NOTE | 2017-08-24 09:50 | P.PN ---
Subjective The patient is in the hospital with what appears to be metastatic kidney carcinoma. He has a large right pleural effusion the reaccumulate. Head has been tapped and the cytology is pending. He has a large left renal mass. He is anemic probably secondary to the kidney cancer and chronic disease. He and his family wish that he go to the [facility]. Once the cytology has been performed will make all decision as to which department at the [facility] to refer him to. From a urologic standpoint he is stable and can go home. I have given the family my phone number to contact me Saturday so that disposition of his care can be finalized. Objective - Vital Signs Vital signs: Vital Signs Temp 99.0 F 08/24/17 07:00 Pulse 103 H 08/24/17 07:00 Resp 16 08/24/17 07:00 BP 127/69 08/24/17 07:00 Pulse Ox 92 L 08/24/17 07:00 Intake & Output 08/23/17 08/24/17 08/24/17 18:59 06:59 18:59 Intake Total 1400 Balance 1400 Weight 86.183 kg Intake: IV 800 Sodium Chloride 0.9% 1, 700 000 ml @ 100 mls/hr IV . Q10H [facility] Rx#:[id number] Sodium Ferric Gluconat- 100 Sucrose 125 mg In Sodium Chloride 0.9% 100 ml @ 100 mls/hr IVPB Q12H [facility] Rx#:[id number] Oral 600 Other: Voiding Method Toilet Toilet # Voids 2 2 - Labs CBC & Chem 7: 08/24/17 06:29 08/24/17 06:29 Labs: Abnormal Lab Results - Last 24 Hours (Table) 08/23/17 08/23/17 08/23/17 Range/Units 11:56 17:05 19:50 WBC (3.8-10.6) k/uL RBC (4.30-5.90) m/uL Hgb (13.0-17.5) gm/dL Hct (39.0-53.0) % MCH (25.0-35.0) pg MCHC (31.0-37.0) g/dL Plt Count (150-450) k/uL Neutrophils # (1.3-7.7) k/uL BUN (9-20) mg/dL Glucose (74-99) mg/dL POC Glucose (mg/dL) 251 H 197 H 197 H (75-99) mg/dL Calcium (8.4-10.2) mg/dL AST (17-59) U/L Total Protein (6.3-8.2) g/dL Albumin (3.5-5.0) g/dL 08/24/17 08/24/17 08/24/17 Range/Units 06:29 06:29 06:49 WBC 22.5 H (3.8-10.6) k/uL RBC 3.08 L (4.30-5.90) m/uL Hgb 7.5 L (13.0-17.5) gm/dL Hct 26.4 L (39.0-53.0) % MCH 24.4 L (25.0-35.0) pg MCHC 28.5 L (31.0-37.0) g/dL Plt Count 562 H (150-450) k/uL Neutrophils # 19.3 H (1.3-7.7) k/uL BUN 8 L (9-20) mg/dL Glucose 151 H (74-99) mg/dL POC Glucose (mg/dL) 165 H (75-99) mg/dL Calcium 7.6 L (8.4-10.2) mg/dL AST 15 L (17-59) U/L Total Protein 4.8 L (6.3-8.2) g/dL Albumin 2.1 L (3.5-5.0) g/dL Microbiology - Last 24 Hours (Table) 08/22/17 15:45 Blood Culture - Preliminary Blood No Growth after 24 hours 08/22/17 15:50 Blood Culture - Preliminary Blood No Growth after 24 hours
[2017-08-24 11:25] LABS: Glucose,Whole Blood 259 mg/dL (75-99)
[2017-08-24] MEDS: MULTIVITAMINS, THERA 1 EACH TAB PO SCH (12:31)
--- NOTE | 2017-08-24 12:32 | P.PN ---
Progress Note - Text I recommended a pigtail catheter for his recurrent pleural effusion. A consult with thoracic surgery is pending. I will defer this dictation at this point until we determine when they're going to perform this. See further documentation for today which will be forthcoming.
--- NOTE | 2017-08-24 12:40 | XR ---
EXAMINATION TYPE: XR chest 2V DATE OF EXAM: 08/24/2017 HISTORY: fluid in lungs. REFERENCE: Previous study dated 08/23/2017. FINDINGS: There is worsening right basilar airspace disease. There is an enlarging right-sided effusi on. Heart size is obscured. The left lung is clear. IMPRESSION: WORSENING RIGHT BASILAR OPACITY.
--- NOTE | 2017-08-24 13:43 | P.GSCN ---
<Wyatt Pollock - Last Filed: 08/24/17 13:41> History of Present Illness Consult date: 08/24/17 Reason for Consult: Recurrent right pleural effusion, assess for Pleurx catheter placement. Requesting physician: Joselyn North History of present illness: This is a 56-year-old gentleman who is followed by Dr. Nikita Rudolph on an outpatient basis. The patient has a past medical history significant for non- insulin-dependent diabetes mellitus, hypertension, iron deficiency anemia, diverticulosis, recent unintentional weight loss of 40 pounds in the last 8 weeks and history of colon polyps. In May 2017 the patient presented to Dr. Rudolph's office with complaints of severe fatigue, weakness, shortness of breath with activity, decreased appetite, pain to his right chest, fever, chills and diarrhea. The patient denies any complaints of nausea, vomiting, problems urinating, dizziness or syncope. Subsequently the patient underwent a chest x-ray and lab work on 07/03/2017, the chest x-ray demonstrated a right pleural effusion and his CBC showed him to be anemic at that time. Subsequently the patient underwent a computed tomography scan of his chest on for further evaluation which demonstrated a right-sided small to moderate pleural effusion. There is no suspicious mass or adenopathy noted at that time. On 07/31/2017 the patient underwent a right-sided thoracentesis performed by interventional radiology with 560 mL of sanguinous fluid evacuated. The cytology from this thoracentesis was negative. The patient also was seen and examined by Dr. Dasilva for his anemia and for a positive Mary virus blood work results. Due to the patient's anemia the patient underwent a computed tomography scan of his abdomen and pelvis on 08/16/2017 which demonstrated a left mid kidney mass measuring 7.1 x 9.3 cm in size. The computed tomography scan also demonstrated a moderate right pleural effusion and thickening of the distal sigmoid colon with multiple diverticuli present. Patient also had a repeat CBC completed on August 20 which showed a worsening anemia with a hemoglobin of 8.2. Subsequently due to the patient's CT abdomen and pelvis results showing a mass to his left mid kidney, moderate right pleural effusion and worsening anemia the patient was admitted to the hospital for further workup and evaluation. On 08/21/2017 the patient underwent a ultrasound of his right chest which showed a 7.3 cm free fluid area. The patient was seen by Dr. North from pulmonary medicine and on 08/22/2017 underwent a right-sided thoracentesis with 2400 mL of serosanguineous fluid removed. The patient also underwent an EGD and colonoscopy on 08/22/[address] Babin, his EGD demonstrated mild gastritis with a biopsy of the antrum taken to rule out H. pylori, and his colonoscopy demonstrated a small polyp in the proximal transverse colon which was removed and a small polyp in his sigmoid colon was identified and removed. The colonoscopy also showed moderate diverticulosis. Subsequently due to the patient's recurrent right pleural effusion a consult was placed for Dr. Yoandy Cassidy from cardiothoracic surgery for possible Pleurx catheter placement. Review of Systems A 14 point review of systems was completed and was negative except as mentioned in the HPI. Past Medical History Past Medical History: Diabetes Mellitus, Hypertension Additional Past Medical History / Comment(s): Recurrent right pleural effusion, "iron deficency anemia", pt stated on 08-16-17 CT scanning of his abdomen and pelvis found a mass on lt kidney measuring 7.3 x 9 cm and thickening in colon wall. 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 pt stated no appetite and unintentional weight loss of 40 lbs in approx 8 weeks. History of Any Multi-Drug Resistant Organisms: None Reported Additional Past Surgical History / Comment(s): Colonoscopy 3 years ago with polyps removed and on 08/22/2017 with polyps removed. Right shoulder repair, rt knee cap surgery 15 years ago, right thoracentesis on 07/31/2017 560 mL of fluid removed and 08/22/2017 with 2400 mL of fluid removed. Past Anesthesia/Blood Transfusion Reactions: No Reported Reaction Past Psychological History: No Psychological Hx Reported Smoking Status: Never smoker Past Alcohol Use History: Rare Past Drug Use History: None Reported - Past Family History Father Family Medical History: Cancer (Lung cancer.), Seizure Disorder Additional Family Medical History / Comment(s): from lung cancer at age 84. Mother Family Medical History: Cancer (Multiple myeloma.) Additional Family Medical History / Comment(s): Past away at age 63. Brother(s) Additional Family Medical History / Comment(s): oldest brother has history of esophageal stricture and his younger brother has a history of perforated colon from diverticulitis. Sister(s) Additional Family Medical History / Comment(s): The patient's sister has a history of an autoimmune disorder psoriatic arthritis. Medications and Allergies Home Medications Medication Instructions Recorded Confirmed Type Lisinopril [Zestril] 10 mg PO DAILY 07/23/17 08/20/17 History amLODIPine [Norvasc] 5 mg PO DAILY 07/23/17 08/20/17 History Multivitamins, Thera [Multivitamin 1 tab PO DAILY 08/20/17 08/20/17 History (formulary)] sitaGLIPtin PHOS/metFORMIN HCL 1 tab PO AC-BID 08/20/17 08/20/17 History [Janumet 50-1,000 mg Tablet] ALPRAZolam [Xanax] 0.25 mg PO QID PRN #60 tab 08/24/17 Rx Pioglitazone [Actos] 30 mg PO DAILY #30 tab 08/24/17 Rx Allergies Allergy/AdvReac Type Severity Reaction Status Date / Time No Known Allergies Allergy Verified 08/20/17 15:24 Surgical - Exam Vital Signs Temp Pulse Resp BP Pulse Ox 100.1 F H 108 H 16 125/77 96 08/20/17 15:17 08/20/17 15:17 08/20/17 15:17 08/20/17 15:17 08/20/17 15:17 - General no distress, no pain, cachectic - Eyes PERRL, normal ocular movement - ENT normal pinna, normal nares, normal mucosa, no hearing loss, no congestion - Neck No JVD, neck is supple, no thyromegaly. no masses, no bruits, trachea midline, no venous distension - Respiratory Lung sounds are essentially clear throughout, diminished to his right lower lobe. Respirations are symmetrical and nonlabored. Oxygen saturation are 92% on room air. - Cardiovascular Regular rhythm and tachycardic rate. S1 and S2 present, systolic murmur 1/6 heard best to his left sternal border, second intercostal space. Current apical heart rate 103. No edema present. - Abdomen Abdomen is soft, nontender and nondistended. Active bowel sounds to all 4 abdominal quadrants. Passing flatus. No guarding or rigidity. No organomegaly. - Integumentary no rash, no growths, no abnormal pigmentation - Neurologic Cranial nerves I through XII intact. normal coordination, normal sensation - Musculoskeletal normal gait, normal posture - Psychiatric oriented to time, oriented to person, oriented to place, speech is normal, memory intact Results - Labs 08/24/17 06:29 08/24/17 06:29 Abnormal Lab Results - Last 24 Hours (Table) 08/23/17 08/23/17 08/24/17 Range/Units 17:05 19:50 06:29 WBC 22.5 H (3.8-10.6) k/uL RBC 3.08 L (4.30-5.90) m/uL Hgb 7.5 L (13.0-17.5) gm/dL Hct 26.4 L (39.0-53.0) % MCH 24.4 L (25.0-35.0) pg MCHC 28.5 L (31.0-37.0) g/dL Plt Count 562 H (150-450) k/uL Neutrophils # 19.3 H (1.3-7.7) k/uL BUN (9-20) mg/dL Glucose (74-99) mg/dL POC Glucose (mg/dL) 197 H 197 H (75-99) mg/dL Calcium (8.4-10.2) mg/dL AST (17-59) U/L Total Protein (6.3-8.2) g/dL Albumin (3.5-5.0) g/dL 08/24/17 08/24/17 08/24/17 Range/Units 06:29 06:49 11:24 WBC (3.8-10.6) k/uL RBC (4.30-5.90) m/uL Hgb (13.0-17.5) gm/dL Hct (39.0-53.0) % MCH (25.0-35.0) pg MCHC (31.0-37.0) g/dL Plt Count (150-450) k/uL Neutrophils # (1.3-7.7) k/uL BUN 8 L (9-20) mg/dL Glucose 151 H (74-99) mg/dL POC Glucose (mg/dL) 165 H 259 H (75-99) mg/dL Calcium 7.6 L (8.4-10.2) mg/dL AST 15 L (17-59) U/L Total Protein 4.8 L (6.3-8.2) g/dL Albumin 2.1 L (3.5-5.0) g/dL Microbiology - Last 24 Hours (Table) 08/22/17 15:45 Blood Culture - Preliminary Blood No Growth after 24 hours 08/22/17 15:50 Blood Culture - Preliminary Blood No Growth after 24 hours Diabetes panel 08/24/17 Range/Units 06:29 Sodium 138 (137-145) mmol/L Potassium 4.8 (3.5-5.1) mmol/L Chloride 107 (98-107) mmol/L Carbon Dioxide 25 (22-30) mmol/L BUN 8 L (9-20) mg/dL Creatinine 0.76 (0.66-1.25) mg/dL Glucose 151 H (74-99) mg/dL Calcium 7.6 L (8.4-10.2) mg/dL AST 15 L (17-59) U/L ALT 34 (21-72) U/L Alkaline Phosphatase 109 (38-126) U/L Total Protein 4.8 L (6.3-8.2) g/dL Albumin 2.1 L (3.5-5.0) g/dL Calcium panel 08/24/17 Range/Units 06:29 Calcium 7.6 L (8.4-10.2) mg/dL Albumin 2.1 L (3.5-5.0) g/dL Pituitary panel 08/24/17 Range/Units 06:29 Sodium 138 (137-145) mmol/L Potassium 4.8 (3.5-5.1) mmol/L Chloride 107 (98-107) mmol/L Carbon Dioxide 25 (22-30) mmol/L BUN 8 L (9-20) mg/dL Creatinine 0.76 (0.66-1.25) mg/dL Glucose 151 H (74-99) mg/dL Calcium 7.6 L (8.4-10.2) mg/dL Adrenal panel 08/24/17 Range/Units 06:29 Sodium 138 (137-145) mmol/L Potassium 4.8 (3.5-5.1) mmol/L Chloride 107 (98-107) mmol/L Carbon Dioxide 25 (22-30) mmol/L BUN 8 L (9-20) mg/dL Creatinine 0.76 (0.66-1.25) mg/dL Glucose 151 H (74-99) mg/dL Calcium 7.6 L (8.4-10.2) mg/dL Total Bilirubin 0.3 (0.2-1.3) mg/dL AST 15 L (17-59) U/L ALT 34 (21-72) U/L Alkaline Phosphatase 109 (38-126) U/L Total Protein 4.8 L (6.3-8.2) g/dL Albumin 2.1 L (3.5-5.0) g/dL - Imaging Chest x-ray: report reviewed, image reviewed Assessment and Plan (1) Recurrent pleural effusion on right Status: Acute Code(s): J90 - PLEURAL EFFUSION, NOT ELSEWHERE CLASSIFIED SNOMED Code(s): 85565687 (2) Left kidney mass Status: Acute Code(s): N28.89 - OTHER SPECIFIED DISORDERS OF KIDNEY AND URETER SNOMED Code(s): 936359513 (3) Unintentional weight loss Status: Acute Code(s): R63.4 - ABNORMAL WEIGHT LOSS SNOMED Code(s): 404026622 (4) Fatigue Status: Acute Code(s): R53.83 - OTHER FATIGUE SNOMED Code(s): 12396693 (5) Hypertension Status: Acute Code(s): I10 - ESSENTIAL (PRIMARY) HYPERTENSION SNOMED Code(s) : 77019980 (6) Diabetes mellitus type II, non insulin dependent Status: Acute Code(s): E11.9 - TYPE 2 DIABETES MELLITUS WITHOUT COMPLICATIONS SNOMED Code(s): 56482841 (7) Anemia Status: Acute Code(s): D64.9 - ANEMIA, UNSPECIFIED SNOMED Code(s): 381805469 (8) Leukocytosis Status: Acute Priority: Medium Code(s): D72.829 - ELEVATED WHITE BLOOD CELL COUNT, UNSPECIFIED SNOMED Code(s): 012915799 (9) Thrombocytosis Status: Acute Priority: Medium Code(s): D47.3 - ESSENTIAL (HEMORRHAGIC) THROMBOCYTHEMIA SNOMED Code(s): 3486493 (10) Weakness Status: Acute Code(s): R53.1 - WEAKNESS SNOMED Code(s): 66092923 Plan: The patient was seen and examined. His chart and diagnostics were reviewed. The patient was seen and examined by Dr. Cassidy. From a cardiothoracic standpoint the patient can be discharged home today when okay with primary care service. He will have a repeat chest x-ray completed on 08/28/2017. If the fluid has reaccumulated the patient will possibly have a Pleurx catheter placed on 08/30/2017. Thank you Dr. North for this consult and we will look forward to working with you in the care of your patient. Time with Patient: Greater than 30 <Yoandy Cassidy - Last Filed: 08/25/17 13:44> Surgical - Exam Vital Signs Temp Pulse Resp BP Pulse Ox 100.1 F H 108 H 16 125/77 96 08/20/17 15:17 08/20/17 15:17 08/20/17 15:17 08/20/17 15:17 08/20/17 15:17 Results - Labs 08/24/17 06:29 08/24/17 06:29 Microbiology - Last 24 Hours (Table) 08/22/17 15:45 Blood Culture - Preliminary Blood No Growth after 48 hours 08/22/17 15:50 Blood Culture - Preliminary Blood No Growth after 48 hours Assessment and Plan Plan: The patient was seen and examined. The history and physical findings were personally verified. I agree with the above assessment and plan. The patient is a 56-year-old male with newly diagnosed renal cell carcinoma. He has had a recurrent right-sided pleural effusion which was recently tapped and drained 2400 mL. A pleur-x catheter was recommended. The risks, benefits, and alternatives to this procedure were discussed with the patient and his . All of their questions were answered. The patient's x-ray today reveals some right-sided effusion but not enough to drain. He is currently asymptomatic. He will be discharged home and obtain a follow up chest x-ray later this week. Once the fluid re-accumulates we will proceed with placement of Pleurx catheter.
--- NOTE | 2017-08-24 13:58 | P.PN ---
Subjective Progress Note Date: 08/24/17 Principal diagnosis: Recurrent right pleural effusion and left adrenal mass consistent with renal cell carcinoma. Darryl 56-year-old White male patient of Dr. Rudolph who was directly admitted to the hospital after being seen by Dr. Dasilva in the office for symptoms of profound weakness, fatigue, unintentional weight loss of 40 pounds in the last 8 weeks. Patient went to see Dr. Rudolph in the office on 07/03/2017 for symptoms of right-sided chest discomfort. A chest x-ray taken in the office showed a right-sided pleural effusion. CT of the chest was done on 07/10/2017 which showed small to moderate-sized right pleural effusion. She was referred to Dr. North, and the chest x-ray taken at Dr. Wilson's office again showed a small to moderate-sized pleural effusion. Patient had a ultrasound-guided thoracentesis would removal of 560 mL of sanguinous pleural fluid. The cytology came back negative. Patient was referred to Dr. 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 Dr. Dasilva diagnosed the patient with iron deficiency anemia, and also ordered CT of abdomen and pelvis. CT of abdomen and pelvis on 08/16/2017 showed a left renal mass suspicious for neoplasm, thickening of the distal sigmoid colon with multiple diverticuli, and underlying mass could not be excluded. A moderate- sized right pleural effusion was also seen. Patient was progressively becoming weak, he was requiring the assistance of his family members with even getting in and out of the car. His appetite is poor. Denies any chest pain at the present moment, however with exertion and even with conversation he becomes dyspneic and fatigued. He denied any fevers, but he reports night sweats. He has occasional productive cough with small amount of clear phlegm. He is a lifetime nonsmoker. His other medical history is positive for diabetes type 2 under good control, and hypertension. We were asked to see the patient in regards to his recurrent right pleural effusion. On 08/22/2017 patient seen again in follow-up on oncology floor. He is awaiting to be taken downstairs to the endoscopy suite for his EGD and colonoscopy by Dr. Babin today. Still remains weak and tired, but states he was able to sleep last night after a dose of Xanax was given to him. He is afebrile, vital signs are stable, he is on room air, with O2 sat at 92%. Lung sounds reveal diminished breath sounds over right lower lobe, with dullness over the same area, and clear lung sounds on the left. Occasional productive cough with production of clear sputum. He is nothing by mouth for the EGD and colonoscopy. We will proceed with right-sided thoracentesis today by Dr. Wilson in the afternoon after his procedures. On 08/23/2017 patient is seen in follow-up. Yesterday he underwent right thoracentesis would removal of 2400 mL of serosanguineous pleural fluid. Fluid cytology is pending at this time. Patient also underwent EGD and colonoscopy, please refer to the operative note by Dr. Babin. Today patient reports feeling better, improved appetite, he is actually hungry today. A bit more energy. Denies any acute dyspnea, but still states he becomes dyspneic with exertion, thinks he may be related to his anemia. Today's labs show WBC of 23.4, hemoglobin is 8.4, INR is 1.4, electrolytes are within normal limits, BUN is 8, creatinine is 0.79. Patient is on room air, with pulse ox of 92%. Did have some low-grade fevers last night with a T-max of 100.7F. He remains slightly tachycardic with a heart rate at 105 BPM. The patient states he feels somewhat better today. Was able to sleep last night. Reevaluated today on 08/24/2017, patient is doing relatively well, he is being considered for possible discharge home, I have requested thoracic surgery consultation for a Pleurx catheter placement, and the patient will be seen by Dr. Cassidy today. From my perspective the patient could be discharged home, and I will see him on outpatient basis, he may be scheduled for Pleurx catheter placement sometime early next week on outpatient basis also by thoracic surgery. Objective - Vital Signs Vital signs: Vital Signs Temp 99.0 F 08/24/17 07:00 Pulse 103 H 08/24/17 07:00 Resp 16 08/24/17 07:00 BP 127/69 08/24/17 07:00 Pulse Ox 92 L 08/24/17 07:00 Intake & Output 08/23/17 08/24/17 08/24/17 18:59 06:59 18:59 Intake Total 1400 Balance 1400 Weight 86.183 kg Intake: IV 800 Sodium Chloride 0.9% 1, 700 000 ml @ 100 mls/hr IV . Q10H [facility] Rx#:[id number] Sodium Ferric Gluconat- 100 Sucrose 125 mg In Sodium Chloride 0.9% 100 ml @ 100 mls/hr IVPB Q12H [facility] Rx#:[id number] Oral 600 Other: Voiding Method Toilet Toilet Toilet # Voids 2 2 - Exam GENERAL EXAM: Alert, pleasant, 56-year-old white male, comfortable in no apparent distress. HEAD: Normocephalic/atraumatic. EYES: Normal reaction of pupils, equal size. Conjunctiva pink, sclera white. NOSE: Clear with pink turbinates. THROAT: No erythema or exudates. NECK: No masses, no JVD, no thyroid enlargement, no adenopathy. CHEST: No chest wall deformity. Symmetrical expansion. LUNGS: Equal air entry with no crackles, wheeze, rhonchi. Lung sounds are diminished over right posterior lower lobe, a few scattered rales noted CVS: Regular rate and rhythm, normal S1 and S2, no gallops, no murmurs, no rubs ABDOMEN: Soft, nontender. No hepatosplenomegaly, normal bowel sounds, no guarding or rigidity. EXTREMITIES: No clubbing, no edema, no cyanosis, 2+ pulses and upper and lower extremities. MUSCULOSKELETAL: Muscle strength and tone normal. SPINE: No scoliosis or deformity SKIN: No rashes CENTRAL NERVOUS SYSTEM: Alert and oriented -3. No focal deficits, tone is normal in all 4 extremities. PSYCHIATRIC: Alert and oriented -3. Appropriate affect. Intact judgment and insight. - Labs CBC & Chem 7: 08/24/17 06:29 08/24/17 06:29 Labs: Abnormal Lab Results - Last 24 Hours (Table) 08/23/17 08/23/17 08/24/17 Range/Units 17:05 19:50 06:29 WBC 22.5 H (3.8-10.6) k/uL RBC 3.08 L (4.30-5.90) m/uL Hgb 7.5 L (13.0-17.5) gm/dL Hct 26.4 L (39.0-53.0) % MCH 24.4 L (25.0-35.0) pg MCHC 28.5 L (31.0-37.0) g/dL Plt Count 562 H (150-450) k/uL Neutrophils # 19.3 H (1.3-7.7) k/uL BUN (9-20) mg/dL Glucose (74-99) mg/dL POC Glucose (mg/dL) 197 H 197 H (75-99) mg/dL Calcium (8.4-10.2) mg/dL AST (17-59) U/L Total Protein (6.3-8.2) g/dL Albumin (3.5-5.0) g/dL 08/24/17 08/24/17 08/24/17 Range/Units 06:29 06:49 11:24 WBC (3.8-10.6) k/uL RBC (4.30-5.90) m/uL Hgb (13.0-17.5) gm/dL Hct (39.0-53.0) % MCH (25.0-35.0) pg MCHC (31.0-37.0) g/dL Plt Count (150-450) k/uL Neutrophils # (1.3-7.7) k/uL BUN 8 L (9-20) mg/dL Glucose 151 H (74-99) mg/dL POC Glucose (mg/dL) 165 H 259 H (75-99) mg/dL Calcium 7.6 L (8.4-10.2) mg/dL AST 15 L (17-59) U/L Total Protein 4.8 L (6.3-8.2) g/dL Albumin 2.1 L (3.5-5.0) g/dL Microbiology - Last 24 Hours (Table) 08/22/17 15:45 Blood Culture - Preliminary Blood No Growth after 24 hours 08/22/17 15:50 Blood Culture - Preliminary Blood No Growth after 24 hours Assessment and Plan Assessment: #1. Recurrent right pleural effusion, status post ultrasound-guided thoracentesis on 07/31/2017 with removal of 560 mL of sanguinous pleural fluid. Pleural fluid cytology was negative for malignancy. Patient underwent right- sided thoracentesis by wa on 08/22/2017 with removal of 2400 mL of serosanguineous pleural fluid, fluid cytology is still pending at this time. #2. Left renal mass suspicious for neoplasm seen on the CT abdomen and pelvis on 08/16/2017 #3. Thickening of the distal sigmoid colon with multiple diverticuli, underlying mass could not be excluded, seen on the CT abdomen and pelvis on #4. Unintentional weight loss of 40 pounds in 8 weeks, weakness, fatigue, possibly related to malignancy #5. Iron deficiency anemia #6. Diabetes mellitus type 2 #7. Hypertension Recommendation: Will await input from thoracic surgery, consider discharge planning and follow-up on outpatient basis. It is a decision will likely be made today for possible outpatient placement of a Pleurx catheter Time with Patient: Less than 30
--- NOTE | 2017-08-24 14:07 | P.DS ---
Providers Date of admission: 08/20/17 14:37 Expected date of discharge: 08/24/17 Attending physician: Nikita Rudolph Consults: 08/20/17 15:06 Consult Physician Routine Consulting Provider: Olivier Dasilva Consult Reason/Comments: sigmoid mass, kidney mass Do you want consulting provider notified?: Already Contacted Consult Physician Routine Consulting Provider: Marbin Babin Consult Reason/Comments: colonoscopy Do you want consulting provider notified?: Yes 08/20/17 15:07 Consult Physician Routine Consulting Provider: Jonny Logan Consult Reason/Comments: left renal mass Do you want consulting provider notified?: Yes 08/21/17 13:19 Consult Physician Routine Consulting Provider: Joselyn North Consult Reason/Comments: recurrent pleural effusion Do you want consulting provider notified?: Yes 08/23/17 15:33 Consult Physician Routine Consulting Provider: Dillon Nguyen Consult Reason/Comments: pleurx catheter Do you want consulting provider notified?: Yes Primary care physician: [facility] Course: 56-year-old male who was directly admitted to the hospital after he was seen by Dr. Dasilva outpatient. His primary care physician is Dr. Rudolph. The patient was originally referred to Dr. Dasilva by Dr. Rudolphs office for abnormal blood work. The patient underwent a CT of the chest on 2017 which revealed a small to moderate sized right pleural effusion. The patient underwent a thoracentesis on 07/31/2017 with removal of approximately 500 mL. Pleural fluid was negative for malignancy at that time. The patient then had a CT of the abdomen and pelvis completed on 08/16/2017 which revealed a left renal mass suspicious for neoplasm, thickening of the distal sigmoid colon with multiple diverticuli present, underlying mass is not excluded, and moderate right pleural effusion. The patient has become progressively weaker over the last 8 weeks. He states his appetite is poor. He reports weight loss of 40 pounds over the last 6-8 weeks. Denies shortness of breath at rest. Positive for dyspnea with exertion. Denies cough. Denies chest pain or pressure. Denies nausea or vomiting. Denies abdominal pain. Denies change in bowel habits. The patient was admitted to the hospital under the care of Dr. De Souza/ Klaudia. Consultations were placed to Gen. surgery, urology, and hematology oncology. 08/22/2017 Patient seen again in follow-up on oncology floor. He is waiting on EGD and colonoscopy by Dr. Babin today. he was able to sleep last night after a dose of Xanax I had ordered. He is nothing by mouth for the EGD and colonoscopy. Waiting on right-sided thoracentesis after his procedures.No chest pain, pressure, SOB, Nausea, vomiting, or melena. 08/23/2017 Patient is feeling much better today. EGD and colonoscopy were not very diagnostic. He is status post thoracentesis and fluid evaluation is pending as well. Xanax continues to help with sleep and mood. He denies any chest pain pressure shortness of breath nausea vomiting or melena. We discussed him going home possibly tomorrow. With his leukocytosis and left shift, the nurse informs me that Dr. Blas does not believe this is infection at this time. 08/24/2017 He is doing well today. His pathology from the thoracentesis still pending. Dr. North put in a consult for thoracic surgery, Dr. Cassidy, he felt a pigtail catheter was in order for the recurrent pleural effusion. This time, they're planning an outpatient x-ray and outpatient procedure for this. Darryl has no complaints today. His diet is much better. He is feeling stronger. He has an appointment in our office tomorrow for physical. Discharge diagnosis Recurrent right pleural effusion, s/p thoracentesis on 07/31/2017 and 2017 , path pending, outpatient pigtail catheter insertion planned Left renal mass, suspicious for renal cell carcinoma Diabetes mellitus, type II, hemoglobin A1c 8.3 Essential hypertension chronic anemia, normocytic Unintentional weight loss of 40 lbs in last 6-8 weeks Moderate to severe calorie protein malnutrition Insomnia Anxiety Plan - Discharge Summary Discharge Rx Participant: No New Discharge Prescriptions: New ALPRAZolam [Xanax] 0.25 mg PO QID PRN #60 tab PRN Reason: Anxiety Pioglitazone [Actos] 30 mg PO DAILY #30 tab Continue amLODIPine [Norvasc] 5 mg PO DAILY Lisinopril [Zestril] 10 mg PO DAILY sitaGLIPtin PHOS/metFORMIN HCL [Janumet 50-1,000 mg Tablet] 1 tab PO AC-BID Multivitamins, Thera [Multivitamin (formulary)] 1 tab PO DAILY Discharge Medication List Lisinopril [Zestril] 10 mg PO DAILY 07/23/17 [History] amLODIPine [Norvasc] 5 mg PO DAILY 07/23/17 [History] Multivitamins, Thera [Multivitamin (formulary)] 1 tab PO DAILY 08/20/17 [History ] sitaGLIPtin PHOS/metFORMIN HCL [Janumet 50-1,000 mg Tablet] 1 tab PO AC-BID [History] ALPRAZolam [Xanax] 0.25 mg PO QID PRN #60 tab 08/24/17 [Rx] Pioglitazone [Actos] 30 mg PO DAILY #30 tab 08/24/17 [Rx] Follow up Appointment(s)/Referral(s): Yoandy Cassidy MD [STAFF PHYSICIAN] - 1 Week Goldy De Souza MD [STAFF PHYSICIAN] - 3 Days Joselyn North MD [STAFF PHYSICIAN] - 1 Week Ambulatory/Diagnostic Orders: XR chest 2V [RAD.AMB] Time Frame: 08/28/17, Facility: [facility], Location: [facility] Discharge Disposition: HOME SELF-CARE
[2017-08-25] MEDS ORDERED: PANTOPRAZOLE 40 MG TABLET PO SCH (09:00)
== END 2017-08-24 17:45 | disposition home or self-care (01) | DRG 686 ==
LOC: 5ONC 14:37
PROVIDERS: ADMIT Family Medicine; ATTEND Family Medicine
PROC: 0W993ZZ Drainage of Right Pleural Cavity, Percutaneous Approach (ICD-10-PCS; principal; 2017-08-22 14:00)
PROC: 0DBN8ZZ Excision of Sigmoid Colon, Via Natural or Artificial Opening Endoscopic (ICD-10-PCS; 2017-08-22 14:00)
PROC: 0DB68ZX Excision of Stomach, Via Natural or Artificial Opening Endoscopic, Diagnostic (ICD-10-PCS; 2017-08-22 14:00)
PROC: 0DBL8ZZ Excision of Transverse Colon, Via Natural or Artificial Opening Endoscopic (ICD-10-PCS; 2017-08-22 14:00)
DX: C64.9 Malignant neoplasm of unspecified kidney, except renal pelvis (principal); E43 Unspecified severe protein-calorie malnutrition; J90 Pleural effusion, not elsewhere classified; N28.1 Cyst of kidney, acquired; D47.3 Essential (hemorrhagic) thrombocythemia; E11.9 Type 2 diabetes mellitus without complications; D12.3 Benign neoplasm of transverse colon; D50.9 Iron deficiency anemia, unspecified; D72.829 Elevated white blood cell count, unspecified; F41.9 Anxiety disorder, unspecified; G47.00 Insomnia, unspecified; I10 Essential (primary) hypertension; K29.70 Gastritis, unspecified, without bleeding; K44.9 Diaphragmatic hernia without obstruction or gangrene; K57.90 Diverticulosis of intestine, part unspecified, without perforation or abscess without bleeding; Z79.84 Long term (current) use of oral hypoglycemic drugs; Z79.899 Other long term (current) drug therapy; Z80.1 Family history of malignant neoplasm of trachea, bronchus and lung; Z80.7 Family history of other malignant neoplasms of lymphoid, hematopoietic and related tissues; Z82.0 Family history of epilepsy and other diseases of the nervous system
CPT/HCPCS: 43239; 45385; 71045; 71046; 76604; 80053; 81001; 82378; 83036; 83735; 85025; 85610; 87040; 87086; 88108; 88305